=== PATIENT | male | born 1985 | race Caucasian/White ===

== ENCOUNTER 2017-02-04 14:45 | Observation (INO) ==
[2017-02-04 15:49] LABS: Basophils # 0.1 K/mcL (0.0-0.2); Basophils % 1.2 %; Eosinophils # 0.2 K/mcL (0.0-0.6); Eosinophils % 2.6 %; Hematocrit 46.4 % (37.5-50.1); Hemoglobin 15.6 g/dL (12.9-16.9); Immature Granulocytes % 0.4 % (0-4); Immature Platelets 1.1 % (1.1-6.1); Lymphocytes # 2.5 K/mcL (0.6-4.6); Lymphocytes % 29.7 %; Mean Corpuscular HGB Conc 33.6 g/dL (31.6-35.5); Mean Corpuscular Hemoglobin 28.5 pg (28.0-33.3); Mean Corpuscular Volume 84.8 fL (83.0-100.0); Monocytes # 0.7 K/mcL (0.0-1.3); Monocytes % 8.8 %; Neutrophils # 4.8 K/mcL (1.6-8.9); Platelet Count 437 K/mcL (140-400); Red Blood Count 5.47 M/mcL (4.19-5.50); Red Cell Distribution Width 13.2 % (11.5-14.5); Segmented Neutrophils % 57.3 %
[2017-02-04 16:04] LABS: Alanine Aminotransferase 290 Units/L (0-55); Albumin 3.9 g/dL (3.5-5.0); Albumin/Globulin Ratio 0.9 (1.1-2.2); Alkaline Phosphatase 149 Units/L (38-126); Aspartate Amino Transferase 150 Units/L (5-34); BUN/Creatinine Ratio 9 (6-26); Bilirubin,Total 0.7 mg/dL (0.2-1.2); Blood Urea Nitrogen 9 mg/dL (8-26); Carbon Dioxide 31 mEq/L (19-29); Chloride 105 mEq/L (98-109); Globulin 4.3 g/dL (2.4-3.5); Glucose 117 mg/dL (70-99); Osmolality,Calculated 292 (280-300); Potassium 3.7 mEq/L (3.5-4.5); Sodium 141 mEq/L (136-145); Total Protein 8.2 g/dL (6.0-8.3); eGFR For African Americans > 60 (> 60); eGFR For Non-African Americans > 60 (> 60)
[2017-02-04] MEDS ORDERED: *HR* LORazepam 2 MG/ML VIAL IVP ONE (17:34)
[2017-02-04] MEDS ORDERED: Haloperidol Lactate 5 MG/ML VIAL IVP ONE (17:37)
--- NOTE | 2017-02-04 17:38 | Emergency Department Note ---
Disposition Clinical Impression: Methamphetamine abuse, Picking own skin, Transaminitis Hepatitis C Qualifiers: Viral hepatitis chronicity: unspecified Hepatic coma status: without hepatic coma Qualified Code(s): B19.20 - Unspecified viral hepatitis C without hepatic coma Disposition: Still a Patient Condition: Fair Referrals: NONE,PCP [Primary Care Provider] - Forms: Work/School Release, ED Satisfaction Letter Time of Disposition: 22:28 General Adult HPI - General Chief complaint: ED General Medical Stated complaint: "spots all over due to a blood infection" Time Seen by Provider: 02/04/17 16:50 Source: patient, family Mode of arrival: ambulatory Limitations: no limitations Nursing Notes Reviewed: Yes Vital Signs Reviewed: Yes - History of Present Illness HPI Narrative: Patient is a 31-year-old male presents to the emergency department because he feels like there are worms under his skin and in his blood. Patient states this is been ongoing for the past 1-2 months. It has been worse over the last week to week and a half. Patient states that the sensation of this is relieved by using methamphetamine. It is worse when he gets emotional. Patient states that he has pulled worms out of his neck and out of his bloodstream with a needle. He states that he has had fever, chills, chest pain, abdominal pain. 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 Pain Scale: 6 - Related Data Allergies Allergy/AdvReac Type Severity Reaction Status Date / Time tramadol [From Ultram] Allergy Rash Verified 02/04/17 15:05 All systems ED: reviewed and negative except as stated. Constitutional: Reports: fever, chills Cardiovascular: Reports: chest pain Respiratory: Reports: dyspnea Gastrointestinal: Reports: abdominal pain Past Medical History - Past Medical History Medical history: Reports: asthma, hepatitis, other Psychiatric history: Reports: anxiety, depression - Social History Smoking Status: Current every day smoker Smokeless Tobacco Status: No Alcohol use: Reports: occasionally Drug use: Reports: marijuana, methamphetamine Physical Exam - General Limitations: no limitations General appearance: alert, anxious - Head Head exam: atraumatic, normocephalic - Neck Neck exam: Present: full ROM, trachea midline, other (Patient has lesions that he has picked on his neck.) - Respiratory Respiratory exam: Present: normal lung sounds bilaterally. Absent: respiratory distress, wheezes - Cardiovascular Cardiovascular exam: Present: regular rate, normal rhythm, normal heart sounds, +S1 - Abdominal Exam Abdominal exam: Present: soft, tenderness, normal bowel sounds, other Abdominal tenderness: Present: diffuse, mild - Neurological Exam Neurological exam: Present: alert, oriented X3 - Psychiatric Psychiatric exam: Present: agitated, anxious - Skin Skin exam: Present: warm, other (Multiple skin lesions throughout his body. Various stages of healing.) Course Vital Signs Temperature 98.1 F 02/04/17 15:05 Pulse Rate 128 02/04/17 15:05 Respiratory Rate 20 02/04/17 15:05 Blood Pressure 148/109 02/04/17 15:05 O2 Sat by Pulse Oximetry 98 02/04/17 15:05 Temperature 98.1 F 02/04/17 15:05 Pulse Rate 128 02/04/17 15:05 Respiratory Rate 20 02/04/17 15:05 Blood Pressure 148/109 02/04/17 15:05 O2 Sat by Pulse Oximetry 98 02/04/17 15:05 Oxygen Delivery Oxygen Delivery Room Air Medical Decision Making - MDM Narrative Medical decision making narrative: Laboratory tests were ordered as well as an EKG and chest x-ray. Due to the patient having a history of endocarditis as well as intravenous drug use recently we will work him up for endocarditis. Patient has been placed on a medical hold and will be evaluated by 1A due to concern for self-harm due to his recent picking and lesions present. The patient's labs came back showing transaminitis we ordered an acute hepatitis panel. This showed that the patient has hepatitis C. we are still waiting on the 1A consult to the patient will be signed out to Dr. Hauser and is attending Dr. Mcdonough - Lab Data Lab results reviewed: Yes I reviewed the patient's lab results. Result diagrams: 02/04/17 15:36 02/04/17 15:36 Lab Results 02/04/17 02/04/17 02/04/17 Range/Units 15:36 15:36 17:46 WBC 8.4 (4.3-11.1) K/mcL RBC 5.47 (4.19-5.50) M/mcL Hgb 15.6 (12.9-16.9) g/dL Hct 46.4 (37.5-50.1) % MCV 84.8 (83.0-100.0) fL MCH 28.5 (28.0-33.3) pg MCHC 33.6 (31.6-35.5) g/dL RDW 13.2 (11.5-14.5) % Plt Count 437 H (140-400) K/mcL MPV 8.0 L (9.4-12.4) fL Immature Gran % 0.4 (0-4) % Seg Neutrophils % 57.3 % Lymphocytes % 29.7 % Monocytes % 8.8 % Eosinophils % 2.6 % Basophils % 1.2 % Neutrophils # 4.8 (1.6-8.9) K/mcL Lymphocytes # 2.5 (0.6-4.6) K/mcL Monocytes # 0.7 (0.0-1.3) K/mcL Eosinophils # 0.2 (0.0-0.6) K/mcL Basophils # 0.1 (0.0-0.2) K/mcL Immature Plt Fraction 1.1 (1.1-6.1) % ESR 25 H (0-10) mm/hr Sodium 141 (136-145) mEq/L Potassium 3.7 (3.5-4.5) mEq/L Chloride 105 (98-109) mEq/L Carbon Dioxide 31 H (19-29) mEq/L BUN 9 (8-26) mg/dL Creatinine 0.99 (0.72-1.25) mg/dL Est GFR ( Amer) > 60 (> 60) Est GFR (Non-Af Amer) > 60 (> 60) BUN/Creatinine Ratio 9 (6-26) Glucose 117 H (70-99) mg/dL Calculated Osmolality 292 (280-300) Calcium 10.0 (8.6-10.8) mg/dL Total Bilirubin 0.7 (0.2-1.2) mg/dL AST 150 H (5-34) Units/L ALT 290 H (0-55) Units/L Alkaline Phosphatase 149 H (38-126) Units/L Troponin I (0-0.03) ng/mL C-Reactive Protein (Less than 5) mg/L Serum Total Protein 8.2 (6.0-8.3) g/dL Albumin 3.9 (3.5-5.0) g/dL Globulin 4.3 H (2.4-3.5) g/dL Albumin/Globulin Ratio 0.9 L (1.1-2.2) Urine Color (Yellow) Urine Clarity (Clear) Urine pH (5.0-8.0) pH Units Ur Specific [place] (1.010-1.025) Urine Protein (Neg-Trace) mg/dL Urine Glucose (UA) (Normal) mg/dL Urine Ketones (Negative) mg/dL Urine Blood (Negative) Urine Nitrite (Negative) Urine Bilirubin (Negative) Urine Urobilinogen (Normal) mg/dL Ur Leukocyte Esterase (Negative) Ur Culture Indicated? (NO) Urine Opiates Screen (Fpjeup=356) ng/mL Ur Barbiturates Screen (Usgzoa=330) ng/mL Ur Phencyclidine Scrn (Cutoff=25) ng/mL Ur Amphetamines Screen (Vpkviz=5455) ng/mL U Benzodiazepines Scrn (Wjybrq=459) ng/mL Urine Cocaine Screen (Cutoff= 300) ng/mL U Marijuana (THC) Screen (Cutoff = 50) ng/mL Hepatitis A IgM Ab (Nonreactive) Hep Bs Antigen (Nonreactive) Hep B Core IgM Ab (Nonreactive) Hepatitis C Ab Screen (Nonreactive) 02/04/17 02/04/17 02/04/17 Range/Units 17:46 17:46 17:46 WBC (4.3-11.1) K/mcL RBC (4.19-5.50) M/mcL Hgb (12.9-16.9) g/dL Hct (37.5-50.1) % MCV (83.0-100.0) fL MCH (28.0-33.3) pg MCHC (31.6-35.5) g/dL RDW (11.5-14.5) % Plt Count (140-400) K/mcL MPV (9.4-12.4) fL Immature Gran % (0-4) % Seg Neutrophils % % Lymphocytes % % Monocytes % % Eosinophils % % Basophils % % Neutrophils # (1.6-8.9) K/mcL Lymphocytes # (0.6-4.6) K/mcL Monocytes # (0.0-1.3) K/mcL Eosinophils # (0.0-0.6) K/mcL Basophils # (0.0-0.2) K/mcL Immature Plt Fraction (1.1-6.1) % ESR (0-10) mm/hr Sodium (136-145) mEq/L Potassium (3.5-4.5) mEq/L Chloride (98-109) mEq/L Carbon Dioxide (19-29) mEq/L BUN (8-26) mg/dL Creatinine (0.72-1.25) mg/dL Est GFR ( Amer) (> 60) Est GFR (Non-Af Amer) (> 60) BUN/Creatinine Ratio (6-26) Glucose (70-99) mg/dL Calculated Osmolality (280-300) Calcium (8.6-10.8) mg/dL Total Bilirubin (0.2-1.2) mg/dL AST (5-34) Units/L ALT (0-55) Units/L Alkaline Phosphatase (38-126) Units/L Troponin I 0.00 (0-0.03) ng/mL C-Reactive Protein 5 H (Less than 5) mg/L Serum Total Protein (6.0-8.3) g/dL Albumin (3.5-5.0) g/dL Globulin (2.4-3.5) g/dL Albumin/Globulin Ratio (1.1-2.2) Urine Color (Yellow) Urine Clarity (Clear) Urine pH (5.0-8.0) pH Units Ur Specific [place] (1.010-1.025) Urine Protein (Neg-Trace) mg/dL Urine Glucose (UA) (Normal) mg/dL Urine Ketones (Negative) mg/dL Urine Blood (Negative) Urine Nitrite (Negative) Urine Bilirubin (Negative) Urine Urobilinogen (Normal) mg/dL Ur Leukocyte Esterase (Negative) Ur Culture Indicated? (NO) Urine Opiates Screen (Lwbzfs=243) ng/mL Ur Barbiturates Screen (Zukdtb=871) ng/mL Ur Phencyclidine Scrn (Cutoff=25) ng/mL Ur Amphetamines Screen (Ajgbqh=6667) ng/mL U Benzodiazepines Scrn (Fxfhpm=328) ng/mL Urine Cocaine Screen (Cutoff= 300) ng/mL U Marijuana (THC) Screen (Cutoff = 50) ng/mL Hepatitis A IgM Ab Nonreactive (Nonreactive) Hep Bs Antigen Nonreactive (Nonreactive) Hep B Core IgM Ab Nonreactive (Nonreactive) Hepatitis C Ab Screen Reactive H (Nonreactive) 02/04/17 02/04/17 Range/Units 20:48 20:48 WBC (4.3-11.1) K/mcL RBC (4.19-5.50) M/mcL Hgb (12.9-16.9) g/dL Hct (37.5-50.1) % MCV (83.0-100.0) fL MCH (28.0-33.3) pg MCHC (31.6-35.5) g/dL RDW (11.5-14.5) % Plt Count (140-400) K/mcL MPV (9.4-12.4) fL Immature Gran % (0-4) % Seg Neutrophils % % Lymphocytes % % Monocytes % % Eosinophils % % Basophils % % Neutrophils # (1.6-8.9) K/mcL Lymphocytes # (0.6-4.6) K/mcL Monocytes # (0.0-1.3) K/mcL Eosinophils # (0.0-0.6) K/mcL Basophils # (0.0-0.2) K/mcL Immature Plt Fraction (1.1-6.1) % ESR (0-10) mm/hr Sodium (136-145) mEq/L Potassium (3.5-4.5) mEq/L Chloride (98-109) mEq/L Carbon Dioxide (19-29) mEq/L BUN (8-26) mg/dL Creatinine (0.72-1.25) mg/dL Est GFR ( Amer) (> 60) Est GFR (Non-Af Amer) (> 60) BUN/Creatinine Ratio (6-26) Glucose (70-99) mg/dL Calculated Osmolality (280-300) Calcium (8.6-10.8) mg/dL Total Bilirubin (0.2-1.2) mg/dL AST (5-34) Units/L ALT (0-55) Units/L Alkaline Phosphatase (38-126) Units/L Troponin I (0-0.03) ng/mL C-Reactive Protein (Less than 5) mg/L Serum Total Protein (6.0-8.3) g/dL Albumin (3.5-5.0) g/dL Globulin (2.4-3.5) g/dL Albumin/Globulin Ratio (1.1-2.2) Urine Color Yellow (Yellow) Urine Clarity Clear (Clear) Urine pH 6.0 (5.0-8.0) pH Units Ur Specific [place] 1.017 (1.010-1.025) Urine Protein Negative (Neg-Trace) mg/dL Urine Glucose (UA) Normal (Normal) mg/dL Urine Ketones Negative (Negative) mg/dL Urine Blood Negative (Negative) Urine Nitrite Negative (Negative) Urine Bilirubin Negative (Negative) Urine Urobilinogen Normal (Normal) mg/dL Ur Leukocyte Esterase Negative (Negative) Ur Culture Indicated? NO (NO) Urine Opiates Screen Negative (Jlifcj=738) ng/mL Ur Barbiturates Screen Negative (Smbaul=877) ng/mL Ur Phencyclidine Scrn Negative (Cutoff=25) ng/mL Ur Amphetamines Screen Positive H (Zonxmf=4345) ng/mL U Benzodiazepines Scrn Negative (Srgwyv=823) ng/mL Urine Cocaine Screen Negative (Cutoff= 300) ng/mL U Marijuana (THC) Screen Positive H (Cutoff = 50) ng/mL Hepatitis A IgM Ab (Nonreactive) Hep Bs Antigen (Nonreactive) Hep B Core IgM Ab (Nonreactive) Hepatitis C Ab Screen (Nonreactive) - Radiology Data Radiology results reviewed: Yes I reviewed the patient's radiology results. Chest X-Ray 02/04/17 17:31 IMPRESSION: No acute process. D/ / Mane Merchant MD / Mane Merchant MD Interpreting Provider: Mane Merchant MD - EKG Data EKG #1 EKG attestation: Yes I reviewed and interpreted this EKG. EKG results narrative: EKG shows sinus tachycardia at a rate of 112 bpm, IN interval 112, QRS duration 97, QTC 392, with a normal axis and no acute ischemic changes noted on this EKG S.B.A.R. - S.B.A.R. Situation: Demographics, MOA Background: Presenting Complaint, Relevant PMH, Meds, & Allergies Assessment: Vital Signs, Course and respsone to treatment, Exam Concerns, Patient/Family Expectation, Pertinant Lab Results, Outstanding Labs Recommendation: Barrier(s) to disposition, Recommendation based on pending studies, treatments, or consults S.B.A.RAmando Report Given to: Dr. Hauser and attending Dr. Ceasar IvanAEvelin Repor Time: 22:28
[2017-02-04] MEDS ORDERED: *HR* LORazepam 2 MG/ML VIAL IM ONE (18:05)
[2017-02-04] MEDS ORDERED: Haloperidol Lactate 5 MG/ML VIAL IM ONE (18:05)
[2017-02-04] MEDS ORDERED: Sulfamethoxazole/Trimeth DS 1 EACH TABLET PO ONE (18:58)
[2017-02-04 20:16] LABS: Hepatitis A Antibody IgM Nonreactive (Nonreactive); Hepatitis B Core IgM Nonreactive (Nonreactive); Hepatitis B Surface Antigen Nonreactive (Nonreactive)
[2017-02-04 20:18] LABS: Hepatitis C Virus Antibody Reactive (Nonreactive)
[2017-02-04 20:56] LABS: Bilirubin,Urine Negative (Negative); Blood,Urine Negative (Negative); Clarity,Urine Clear (Clear); Color,Urine Yellow (Yellow); Glucose,Urine (UA) Normal (Normal); Ketones,Urine Negative (Negative); Leukocyte Esterase,Urine Negative (Negative); Nitrite,Urine Negative (Negative); Protein,Urine Negative (Neg-Trace); Specific Gravity,Urine 1.017 (1.010-1.025); Urobilinogen,Urine Normal (Normal)
[2017-02-04 21:12] LABS: Amphetamine Screen,Urine Positive ng/mL (Cutoff=1000); Barbiturate Screen,Urine Negative ng/mL (Cutoff=200); Benzodiazepines Screen,Urine Negative ng/mL (Cutoff=200); Cannabinoid Screen,Urine Positive ng/mL (Cutoff = 50); Cocaine Screen,Urine Negative ng/mL (Cutoff= 300); Opiate Screen,Urine Negative ng/mL (Cutoff=300); Phencyclidine Screen,Urine Negative ng/mL (Cutoff=25)
--- NOTE | 2017-02-04 21:19 | Emergency Department Note ---
START Narrative - START START: I examined this patient and my medical decision-making was reviewed with the Resident Physician. I agree with the documented findings, disposition and treatment plan as described except to the extent set forth below. In summary 31 -year-old male with polysubstance abuse and associated acute psychosis resulting in severely excoriated skin and self mutilating behavior. He was actually found picking himself with a pair of scissors. I do suspect methamphetamine intoxication given excoriated skin behavior. He is acutely agitated. He is found to be positive for hepatitis C and found to have transaminitis. I discussed he would after subsequent treatment with gastroenterology and follow-up. At this point I would prefer the patient to stay on a medical hold as I do feel he is a danger to himself at this point due to poor decisions as well as intoxication with methamphetamine as well as Opana. We will continue medical hold pending final disposition by behavioral health team. I would prescribe Bactrim at discharge for excoriated skin lesions if the patient has discharge. Greater than 35 minutes of critical care time was spent resuscitating this acutely agitated male requiring chemical restraint as well as evaluation of acute hepatic failure from underlying hepatitis C. Critical care time was excluding billable procedures.
--- NOTE | 2017-02-05 00:34 | Emergency Department Note ---
Disposition Clinical Impression: Methamphetamine abuse, Picking own skin, Transaminitis Hepatitis C Qualifiers: Viral hepatitis chronicity: unspecified Hepatic coma status: without hepatic coma Qualified Code(s): B19.20 - Unspecified viral hepatitis C without hepatic coma Disposition: Admitted As Inpatient Condition: Fair Referrals: NONE,PCP [Primary Care Provider] - Forms: ED Satisfaction Letter, Work/School Release Time of Disposition: 00:34 General Adult HPI - General Chief complaint: ED General Medical Stated complaint: "spots all over due to a blood infection" Time Seen by Provider: 02/04/17 16:50 Source: patient, family Mode of arrival: ambulatory Limitations: no limitations - History of Present Illness Pain Scale: 6 - Related Data Allergies Allergy/AdvReac Type Severity Reaction Status Date / Time tramadol [From [facility]] Allergy Rash Verified 02/04/17 15:05 Constitutional: Reports: fever, chills Cardiovascular: Reports: chest pain Respiratory: Reports: dyspnea Gastrointestinal: Reports: abdominal pain Past Medical History - Past Medical History Medical history: Reports: asthma, hepatitis, other Psychiatric history: Reports: anxiety, depression - Social History Smoking Status: Current every day smoker Smokeless Tobacco Status: No Alcohol use: Reports: occasionally Drug use: Reports: marijuana, methamphetamine Physical Exam - General Limitations: no limitations General appearance: alert, anxious Course - Reevaluation(s) Reevaluation #1: Patient signed out pending evaluation by psych. Except a by one a. Time: 00:34 Vital Signs Temperature 98.1 F 02/04/17 15:05 Pulse Rate 128 02/04/17 15:05 Respiratory Rate 20 02/04/17 15:05 Blood Pressure 148/109 02/04/17 15:05 O2 Sat by Pulse Oximetry 98 02/04/17 15:05 Temperature 98.1 F 02/04/17 15:05 Pulse Rate 128 02/04/17 15:05 Respiratory Rate 20 02/04/17 15:05 Blood Pressure 148/109 02/04/17 15:05 O2 Sat by Pulse Oximetry 98 02/04/17 15:05 Oxygen Delivery Oxygen Delivery Room Air Medical Decision Making - Lab Data Result diagrams: 02/04/17 15:36 02/04/17 15:36 Lab Results 02/04/17 02/04/17 02/04/17 Range/Units 15:36 15:36 17:46 WBC 8.4 (4.3-11.1) K/mcL RBC 5.47 (4.19-5.50) M/mcL Hgb 15.6 (12.9-16.9) g/dL Hct 46.4 (37.5-50.1) % MCV 84.8 (83.0-100.0) fL MCH 28.5 (28.0-33.3) pg MCHC 33.6 (31.6-35.5) g/dL RDW 13.2 (11.5-14.5) % Plt Count 437 H (140-400) K/mcL MPV 8.0 L (9.4-12.4) fL Immature Gran % 0.4 (0-4) % Seg Neutrophils % 57.3 % Lymphocytes % 29.7 % Monocytes % 8.8 % Eosinophils % 2.6 % Basophils % 1.2 % Neutrophils # 4.8 (1.6-8.9) K/mcL Lymphocytes # 2.5 (0.6-4.6) K/mcL Monocytes # 0.7 (0.0-1.3) K/mcL Eosinophils # 0.2 (0.0-0.6) K/mcL Basophils # 0.1 (0.0-0.2) K/mcL Immature Plt Fraction 1.1 (1.1-6.1) % ESR 25 H (0-10) mm/hr Sodium 141 (136-145) mEq/L Potassium 3.7 (3.5-4.5) mEq/L Chloride 105 (98-109) mEq/L Carbon Dioxide 31 H (19-29) mEq/L BUN 9 (8-26) mg/dL Creatinine 0.99 (0.72-1.25) mg/dL Est GFR ( Amer) > 60 (> 60) Est GFR (Non-Af Amer) > 60 (> 60) BUN/Creatinine Ratio 9 (6-26) Glucose 117 H (70-99) mg/dL Calculated Osmolality 292 (280-300) Calcium 10.0 (8.6-10.8) mg/dL Total Bilirubin 0.7 (0.2-1.2) mg/dL AST 150 H (5-34) Units/L ALT 290 H (0-55) Units/L Alkaline Phosphatase 149 H (38-126) Units/L Troponin I (0-0.03) ng/mL C-Reactive Protein (Less than 5) mg/L Serum Total Protein 8.2 (6.0-8.3) g/dL Albumin 3.9 (3.5-5.0) g/dL Globulin 4.3 H (2.4-3.5) g/dL Albumin/Globulin Ratio 0.9 L (1.1-2.2) Urine Color (Yellow) Urine Clarity (Clear) Urine pH (5.0-8.0) pH Units Ur Specific [place] (1.010-1.025) Urine Protein (Neg-Trace) mg/dL Urine Glucose (UA) (Normal) mg/dL Urine Ketones (Negative) mg/dL Urine Blood (Negative) Urine Nitrite (Negative) Urine Bilirubin (Negative) Urine Urobilinogen (Normal) mg/dL Ur Leukocyte Esterase (Negative) Ur Culture Indicated? (NO) Urine Opiates Screen (Izgxdz=644) ng/mL Ur Barbiturates Screen (Nbeojy=254) ng/mL Ur Phencyclidine Scrn (Cutoff=25) ng/mL Ur Amphetamines Screen (Sjfrfi=9079) ng/mL U Benzodiazepines Scrn (Tjerkn=524) ng/mL Urine Cocaine Screen (Cutoff= 300) ng/mL U Marijuana (THC) Screen (Cutoff = 50) ng/mL Hepatitis A IgM Ab (Nonreactive) Hep Bs Antigen (Nonreactive) Hep B Core IgM Ab (Nonreactive) Hepatitis C Ab Screen (Nonreactive) 02/04/17 02/04/17 02/04/17 Range/Units 17:46 17:46 17:46 WBC (4.3-11.1) K/mcL RBC (4.19-5.50) M/mcL Hgb (12.9-16.9) g/dL Hct (37.5-50.1) % MCV (83.0-100.0) fL MCH (28.0-33.3) pg MCHC (31.6-35.5) g/dL RDW (11.5-14.5) % Plt Count (140-400) K/mcL MPV (9.4-12.4) fL Immature Gran % (0-4) % Seg Neutrophils % % Lymphocytes % % Monocytes % % Eosinophils % % Basophils % % Neutrophils # (1.6-8.9) K/mcL Lymphocytes # (0.6-4.6) K/mcL Monocytes # (0.0-1.3) K/mcL Eosinophils # (0.0-0.6) K/mcL Basophils # (0.0-0.2) K/mcL Immature Plt Fraction (1.1-6.1) % ESR (0-10) mm/hr Sodium (136-145) mEq/L Potassium (3.5-4.5) mEq/L Chloride (98-109) mEq/L Carbon Dioxide (19-29) mEq/L BUN (8-26) mg/dL Creatinine (0.72-1.25) mg/dL Est GFR ( Amer) (> 60) Est GFR (Non-Af Amer) (> 60) BUN/Creatinine Ratio (6-26) Glucose (70-99) mg/dL Calculated Osmolality (280-300) Calcium (8.6-10.8) mg/dL Total Bilirubin (0.2-1.2) mg/dL AST (5-34) Units/L ALT (0-55) Units/L Alkaline Phosphatase (38-126) Units/L Troponin I 0.00 (0-0.03) ng/mL C-Reactive Protein 5 H (Less than 5) mg/L Serum Total Protein (6.0-8.3) g/dL Albumin (3.5-5.0) g/dL Globulin (2.4-3.5) g/dL Albumin/Globulin Ratio (1.1-2.2) Urine Color (Yellow) Urine Clarity (Clear) Urine pH (5.0-8.0) pH Units Ur Specific [place] (1.010-1.025) Urine Protein (Neg-Trace) mg/dL Urine Glucose (UA) (Normal) mg/dL Urine Ketones (Negative) mg/dL Urine Blood (Negative) Urine Nitrite (Negative) Urine Bilirubin (Negative) Urine Urobilinogen (Normal) mg/dL Ur Leukocyte Esterase (Negative) Ur Culture Indicated? (NO) Urine Opiates Screen (Jmrxap=324) ng/mL Ur Barbiturates Screen (Wkxmdd=257) ng/mL Ur Phencyclidine Scrn (Cutoff=25) ng/mL Ur Amphetamines Screen (Rcsnem=1475) ng/mL U Benzodiazepines Scrn (Enwdhf=151) ng/mL Urine Cocaine Screen (Cutoff= 300) ng/mL U Marijuana (THC) Screen (Cutoff = 50) ng/mL Hepatitis A IgM Ab Nonreactive (Nonreactive) Hep Bs Antigen Nonreactive (Nonreactive) Hep B Core IgM Ab Nonreactive (Nonreactive) Hepatitis C Ab Screen Reactive H (Nonreactive) 02/04/17 02/04/17 Range/Units 20:48 20:48 WBC (4.3-11.1) K/mcL RBC (4.19-5.50) M/mcL Hgb (12.9-16.9) g/dL Hct (37.5-50.1) % MCV (83.0-100.0) fL MCH (28.0-33.3) pg MCHC (31.6-35.5) g/dL RDW (11.5-14.5) % Plt Count (140-400) K/mcL MPV (9.4-12.4) fL Immature Gran % (0-4) % Seg Neutrophils % % Lymphocytes % % Monocytes % % Eosinophils % % Basophils % % Neutrophils # (1.6-8.9) K/mcL Lymphocytes # (0.6-4.6) K/mcL Monocytes # (0.0-1.3) K/mcL Eosinophils # (0.0-0.6) K/mcL Basophils # (0.0-0.2) K/mcL Immature Plt Fraction (1.1-6.1) % ESR (0-10) mm/hr Sodium (136-145) mEq/L Potassium (3.5-4.5) mEq/L Chloride (98-109) mEq/L Carbon Dioxide (19-29) mEq/L BUN (8-26) mg/dL Creatinine (0.72-1.25) mg/dL Est GFR ( Amer) (> 60) Est GFR (Non-Af Amer) (> 60) BUN/Creatinine Ratio (6-26) Glucose (70-99) mg/dL Calculated Osmolality (280-300) Calcium (8.6-10.8) mg/dL Total Bilirubin (0.2-1.2) mg/dL AST (5-34) Units/L ALT (0-55) Units/L Alkaline Phosphatase (38-126) Units/L Troponin I (0-0.03) ng/mL C-Reactive Protein (Less than 5) mg/L Serum Total Protein (6.0-8.3) g/dL Albumin (3.5-5.0) g/dL Globulin (2.4-3.5) g/dL Albumin/Globulin Ratio (1.1-2.2) Urine Color Yellow (Yellow) Urine Clarity Clear (Clear) Urine pH 6.0 (5.0-8.0) pH Units Ur Specific [place] 1.017 (1.010-1.025) Urine Protein Negative (Neg-Trace) mg/dL Urine Glucose (UA) Normal (Normal) mg/dL Urine Ketones Negative (Negative) mg/dL Urine Blood Negative (Negative) Urine Nitrite Negative (Negative) Urine Bilirubin Negative (Negative) Urine Urobilinogen Normal (Normal) mg/dL Ur Leukocyte Esterase Negative (Negative) Ur Culture Indicated? NO (NO) Urine Opiates Screen Negative (Hcpqlf=559) ng/mL Ur Barbiturates Screen Negative (Hhzklh=425) ng/mL Ur Phencyclidine Scrn Negative (Cutoff=25) ng/mL Ur Amphetamines Screen Positive H (Lctbil=0579) ng/mL U Benzodiazepines Scrn Negative (Kzfibh=433) ng/mL Urine Cocaine Screen Negative (Cutoff= 300) ng/mL U Marijuana (THC) Screen Positive H (Cutoff = 50) ng/mL Hepatitis A IgM Ab (Nonreactive) Hep Bs Antigen (Nonreactive) Hep B Core IgM Ab (Nonreactive) Hepatitis C Ab Screen (Nonreactive)
[2017-02-05] MEDS ORDERED: Acetaminophen 325 MG TABLET PO PRN (05:57)
[2017-02-05] MEDS ORDERED: Naloxone 0.4 MG/ML INJ IVP PRN (05:57)
[2017-02-05] MEDS ORDERED: OLANZapine 10 MG VIAL IM PRN (05:59)
--- NOTE | 2017-02-05 06:05 | Internal Med History&Physical ---
Date of Encounter: 02/05/17 Time of Encounter: 06:02 Assessment and Plan (1) Helminth infection, unspecified Current visit: Yes Status: Acute psych eval in the ED requested for inpatient work up for worm infection in his stomach as reported by patient. Will consult ID to assist with evaluation and testing. There is doubts of whether this is psychosis related rather than true infection. Eosinophils wnl (2) Psychosis Current visit: Yes Status: Acute 2/2 substance abuse, anti psychotic prn, consult psych Qualifiers: Qualified Code(s): F29 - Unspecified psychosis not due to a substance or known physiological condition (3) Hepatitis C Current visit: Yes Status: Acute from IVDU Qualifiers: Viral hepatitis chronicity: unspecified Hepatic coma status: without hepatic coma Qualified Code(s): B19.20 - Unspecified viral hepatitis C without hepatic coma (4) Methamphetamine abuse Current visit: Yes Status: Acute active, pending psych eval and inpatient psych per ED eval. Pending medical clearance of infectious disease - worms ? Social work consult (5) Picking own skin Current visit: Yes Status: Acute 2/2 to drug use (6) Transaminitis Current visit: Yes Status: Acute likely 2/2 HCV and drug use, trend Internal Medicine - H&P: HPI Chief complaint: patient felt he has worm infection History of present illness: Mr. Swanson is a 31 year old male with active IV opana and methamphetamine uses who presents for medical clearance of infectious disease prior to planned inpatient psych placement. He was in the ED and evaluated by psych with plan for inpatient care. However, he reported to the psych team that has "worm" infection and had worms in his stomach when he vomited. He denies any diarrhea but report progressive soft stools. He is in active psychosis from drugs and has a medical hold Past Med Surg Social Fam HX - Past Medical History Medical history: asthma, hepatitis, other Psychiatric history: anxiety, depression - Social History Smoking Status: Current every day smoker Smokeless Tobacco Status: No Alcohol use: occasionally Drug use: marijuana, methamphetamine Internal Medicine - H&P: Meds Allergies tramadol [From Ultram] Allergy (Verified 02/04/17 15:05) Rash All Systems PM: A 10-system review of systems was performed and is negative for pertinent findings except as documented above in the HPI. Review of systems: ROS 14 point review of systems reviewed as best as possible given presentation. Pertinent positive or negative as per HPI or otherwise reviewed as negative - Constitutional Vitals: Temp Pulse Resp BP Pulse Ox 98.1 F 83 18 114/75 100 02/04/17 15:05 02/05/17 04:44 02/05/17 04:44 02/05/17 04:44 02/05/17 04:44 Exam: General - confused Psych - Mild agitation Eyes - ROCHELLE. Eye lids intact. No scleral icterus ENT - Oral mucosa pink, dentition intact. External ear clear/dry/intact. No thyromegaly Heart - Sinus. RRR. S1 and S2 present. No added HS/murmurs appreciated. No elevated JVD appreciated. No calf swellings/erythema Lung - Adequate air entry b/l, No crackes/wheezes appreciated GI - Soft, non-tender. No hepatosplenomegaly/ascities. BS+ - No CVA/suprapubic tenderness or palpable bladder distension Skin - skins lesions all over body with varying stages of healing Internal Med - H&P Results - Labs CBC & Chem 7: 02/04/17 15:36 02/04/17 15:36
[2017-02-05] MEDS ORDERED: Sulfamethoxazole/Trimeth DS 1 EACH TABLET PO ONE (06:15)
[2017-02-05] MEDS: 0.9 % Sodium Chloride 1,000 ML IVC SCH ×2 (06:49→21:52)
[2017-02-05] MEDS: *HR* Enoxaparin 40 MG/0.4 ML SYRINGE SQ SCH (06:50)
--- NOTE | 2017-02-05 09:19 | Event Note ---
Date of Encounter: 02/05/17 Time of Encounter: 08:20 Patient is a 31y/o male with history of active IV drug abuse, hepatitis C who presented to the ER with active psychosis. As per records, patient was in active state of delirium and was digging into his arm with a knife stating that he has worms inside him. There is no clinical evidence of infectious etiology present at this time. Patient was not accepted into psych due to the history provided by the patient. Pt needs medical clearance as per psych. At this time, patient is sleeping comfortably in bed with a sitter at bedside. His toxicology screen is positive for amphetamines and marijuana. He is hemodynamically stable and initial lab work was negative for any infectious etiology. Elevated LFTs are consistent with history of hepatitis C. Will repeat Lab work and continue bedside sitter. Zyprexa prn agitation. If patient remains stable with no further signs of infectious etiology, he should be transferred to psych in patient. Psychiatry evaluation requested.
[2017-02-05 09:38] LABS: Hematocrit 42.9 % (37.5-50.1); Hemoglobin 14.4 g/dL (12.9-16.9); Mean Corpuscular HGB Conc 33.6 g/dL (31.6-35.5); Mean Corpuscular Hemoglobin 28.5 pg (28.0-33.3); Mean Platelet Volume 8.3 fL (9.4-12.4); Platelet Count 320 K/mcL (140-400); Red Blood Count 5.05 M/mcL (4.19-5.50); Red Cell Distribution Width 13.3 % (11.5-14.5)
[2017-02-05 09:53] LABS: Alanine Aminotransferase 293 Units/L (0-55); Albumin/Globulin Ratio 0.9 (1.1-2.2); Alkaline Phosphatase 127 Units/L (38-126); Aspartate Amino Transferase 202 Units/L (5-34); BUN/Creatinine Ratio 9 (6-26); Bilirubin,Total 0.9 mg/dL (0.2-1.2); Blood Urea Nitrogen 7 mg/dL (8-26); Carbon Dioxide 30 mEq/L (19-29); Chloride 106 mEq/L (98-109); Globulin 3.4 g/dL (2.4-3.5); Glucose 86 mg/dL (70-99); Magnesium 2.1 mg/dL (1.6-2.6); Osmolality,Calculated 289 (280-300); Phosphorous 3.5 mg/dL (2.3-4.7); Potassium 4.1 mEq/L (3.5-4.5); Sodium 141 mEq/L (136-145); eGFR For African Americans > 60 (> 60); eGFR For Non-African Americans > 60 (> 60)
[2017-02-05 09:54] LABS: Albumin 3.1 g/dL (3.5-5.0); Total Protein 6.5 g/dL (6.0-8.3)
[2017-02-05 10:13] LABS: Eosinophils # 0.3 K/mcL (0.0-0.6); Lymphocytes # 2.3 K/mcL (0.6-4.6); Monocytes # 0.8 K/mcL (0.0-1.3); Neutrophils # 4.2 K/mcL (1.6-8.9); Platelet Estimate Normal (Normal)
--- NOTE | 2017-02-05 14:18 | Consult Note ---
Date of Encounter: 02/05/17 Time of Encounter: 13:55 Assessment & Recommendation (1) Acute psychosis Current visit: Yes Status: Acute (2) Methamphetamine abuse Current visit: Yes Status: Acute (3) Cannabis abuse Current visit: Yes Status: Acute History of Present Illness Requesting Physician: Shantal Louise Reason for consult: acute psychosis History of present illness: Mr. Swanson is a 31 year old male who was consulted today for substance use and acute psychosis. Patient chart was reviewed. Patient was seen in his room along with the sitter. he started talking about his drug use , when asked about his method of use and his excoriated skin he got very agitated , irritable and asked me to leave and said I am done talking. as per notes patient was bought to ER by his family and has bee using poly substance , toxicology positive for marijuana and amphetamines. He was found picking himself with pair of scissors. at present he is still acutely agitated and psychotic. He is not giving me any history and was agitated and refused to talk. PLAN needs psychiatric inpatient secondary to psychosis and agitation as can be harmful to self/others. start zyprexa 10 mg po hs . also continue prn zyprexa 5 mg for agitation and psychosis. CC: Shantal Louise Past Med Surg Social Fam HX - Past Medical History Medical history: asthma, hepatitis, other - Past Psychiatric History Psychiatric history: Reports: depression Family psychiatric history: Unknown Family History of Suicide: Unknown - Social History Smoking Status: Current every day smoker Smokeless Tobacco Status: No Alcohol use: occasionally Drug use: marijuana, methamphetamine Medications & Allergies Allergies tramadol [From Ultram] Allergy (Verified 02/04/17 15:05) Rash Review of Systems Psychiatric: Reports: irritability Mental Status Exam Level of alertness: Alert Patient appearance: Unkempt Behavior: agitated, aggressive, hostile, uncooperative, impulsive Psychomotor activity: Agitated Eye contact: No Eye Contact Mood description: Angry, Irritable Affect description: congruent with mood Speech pattern: Normal rate Speech volume: Excessive Variation Thought content: Yes Paranoid delusion Attention span: Unable to Sustain Attention Patient reliability: Not Reliable Historian Insight: None Results - Vital Signs Vital signs: Temp Pulse Resp BP Pulse Ox 97.6 F 91 18 93/52 99 02/05/17 08:49 02/05/17 08:49 07/29/17 08:49 02/05/17 08:49 02/05/17 08:49 - Labs Labs: Laboratory Last Values WBC 7.5 K/mcL (4.3-11.1) 02/05/17 09:19 RBC 5.05 M/mcL (4.19-5.50) 02/05/17 09:19 Hgb 14.4 g/dL (12.9-16.9) 02/05/17 09:19 Hct 42.9 % (37.5-50.1) 02/05/17 09:19 MCV 85.0 fL (83.0-100.0) 02/05/17 09:19 MCH 28.5 pg (28.0-33.3) 02/05/17 09:19 MCHC 33.6 g/dL (31.6-35.5) 02/05/17 09:19 RDW 13.3 % (11.5-14.5) 02/05/17 09:19 Plt Count 320 K/mcL (140-400) 02/05/17 09:19 MPV 8.3 fL (9.4-12.4) L 02/05/17 09:19 Immature Gran % 0.4 % (0-4) 02/04/17 15:36 Seg Neutrophils % 54.0 % 02/05/17 09:19 Band Neutrophils % 2.0 % (0-4) 02/05/17 09:19 Lymphocytes % 30.0 % 02/05/17 09:19 Monocytes % 10.0 % 02/05/17 09:19 Eosinophils % 4.0 % 02/05/17 09:19 Basophils % 1.2 % 02/04/17 15:36 Neutrophils # 4.2 K/mcL (1.6-8.9) 02/05/17 09:19 Lymphocytes # 2.3 K/mcL (0.6-4.6) 02/05/17 09:19 Monocytes # 0.8 K/mcL (0.0-1.3) 02/05/17 09:19 Eosinophils # 0.3 K/mcL (0.0-0.6) 02/05/17 09:19 Basophils # 0.1 K/mcL (0.0-0.2) 02/04/17 15:36 Platelet Estimate Normal (Normal) 02/05/17 09:19 Immature Plt Fraction 1.1 % (1.1-6.1) 02/04/17 15:36 ESR 25 mm/hr (0-10) H 02/04/17 17:46 Sodium 141 mEq/L (136-145) 02/05/17 09:19 Potassium 4.1 mEq/L (3.5-4.5) 02/05/17 09:19 Chloride 106 mEq/L (98-109) 02/05/17 09:19 Carbon Dioxide 30 mEq/L (19-29) H 02/05/17 09:19 BUN 7 mg/dL (8-26) L 02/05/17 09:19 Creatinine 0.77 mg/dL (0.72-1.25) 02/05/17 09:19 Est GFR ( Amer) > 60 (> 60) 02/05/17 09:19 Est GFR (Non-Af Amer) > 60 (> 60) 02/05/17 09:19 BUN/Creatinine Ratio 9 (6-26) 02/05/17 09:19 Glucose 86 mg/dL (70-99) 02/05/17 09:19 Calculated Osmolality 289 (280-300) 02/05/17 09:19 Calcium 9.0 mg/dL (8.6-10.8) 02/05/17 09:19 Phosphorus 3.5 mg/dL (2.3-4.7) 02/05/17 09:19 Magnesium 2.1 mg/dL (1.6-2.6) 02/05/17 09:19 Total Bilirubin 0.9 mg/dL (0.2-1.2) 02/05/17 09:19 AST 202 Units/L (5-34) H 02/05/17 09:19 ALT 293 Units/L (0-55) H 02/05/17 09:19 Alkaline Phosphatase 127 Units/L (38-126) H 02/05/17 09:19 Troponin I 0.00 ng/mL (0-0.03) 02/04/17 17:46 C-Reactive Protein 5 mg/L (Less than 5) H 02/04/17 17:46 Serum Total Protein 6.5 g/dL (6.0-8.3) D 02/05/17 09:19 Albumin 3.1 g/dL (3.5-5.0) L D 02/05/17 09:19 Globulin 3.4 g/dL (2.4-3.5) 02/05/17 09:19 Albumin/Globulin Ratio 0.9 (1.1-2.2) L 02/05/17 09:19 Urine Color Yellow (Yellow) 02/04/17 20:48 Urine Clarity Clear (Clear) 02/04/17 20:48 Urine pH 6.0 pH Units (5.0-8.0) 02/04/17 20:48 Ur Specific [place] 1.017 (1.010-1.025) 02/04/17 20:48 Urine Protein Negative mg/dL (Neg-Trace) 02/04/17 20:48 Urine Glucose (UA) Normal mg/dL (Normal) 02/04/17 20:48 Urine Ketones Negative mg/dL (Negative) 02/04/17 20:48 Urine Blood Negative (Negative) 02/04/17 20:48 Urine Nitrite Negative (Negative) 02/04/17 20:48 Urine Bilirubin Negative (Negative) 02/04/17 20:48 Urine Urobilinogen Normal mg/dL (Normal) 02/04/17 20:48 Ur Leukocyte Esterase Negative (Negative) 02/04/17 20:48 Ur Culture Indicated? NO (NO) 02/04/17 20:48 Urine Opiates Screen Negative ng/mL (Sbtbqe=221) 02/04/17 20:48 Ur Barbiturates Screen Negative ng/mL (Ernnvp=926) 02/04/17 20:48 Ur Phencyclidine Scrn Negative ng/mL (Cutoff=25) 02/04/17 20:48 Ur Amphetamines Screen Positive ng/mL (Sjhwcq=2873) H 02/04/17 20:48 U Benzodiazepines Scrn Negative ng/mL (Mntfgg=685) 02/04/17 20:48 Urine Cocaine Screen Negative ng/mL (Cutoff= 300) 02/04/17 20:48 U Marijuana (THC) Screen Positive ng/mL (Cutoff = 50) H 02/04/17 20:48 Hepatitis A IgM Ab Nonreactive (Nonreactive) 02/04/17 17:46 Hep Bs Antigen Nonreactive (Nonreactive) 02/04/17 17:46 Hep B Core IgM Ab Nonreactive (Nonreactive) 02/04/17 17:46 Hepatitis C Ab Screen Reactive (Nonreactive) H 02/04/17 17:46 Consult Discharge Plan - Plan Referrals: NONE,PCP [Primary Care Provider] -
[2017-02-05] MEDS ORDERED: Water for inj. (sterile) 10 ML IV ONE (16:49)
[2017-02-06] MEDS: OLANZapine 10 MG TAB.RAPDIS PO SCH ×2 (03:24→19:53)
[2017-02-06] MEDS: 0.9 % Sodium Chloride 1,000 ML IVC SCH (03:24)
[2017-02-06] MEDS ORDERED: OLANZapine 10 MG TAB.RAPDIS PO ONE (03:44)
[2017-02-06 04:33] LABS: Basophils # 0.1 K/mcL (0.0-0.2); Basophils % 1.5 %; Eosinophils # 0.3 K/mcL (0.0-0.6); Eosinophils % 4.7 %; Hematocrit 42.7 % (37.5-50.1); Hemoglobin 14.2 g/dL (12.9-16.9); Immature Granulocytes % 0.3 % (0-4); Lymphocytes # 2.8 K/mcL (0.6-4.6); Lymphocytes % 40.6 %; Mean Corpuscular HGB Conc 33.3 g/dL (31.6-35.5); Mean Corpuscular Hemoglobin 28.7 pg (28.0-33.3); Mean Corpuscular Volume 86.3 fL (83.0-100.0); Mean Platelet Volume 8.3 fL (9.4-12.4); Monocytes # 0.6 K/mcL (0.0-1.3); Monocytes % 9.1 %; Platelet Count 318 K/mcL (140-400); Red Blood Count 4.95 M/mcL (4.19-5.50); Red Cell Distribution Width 13.2 % (11.5-14.5); Segmented Neutrophils % 43.8 %
[2017-02-06 04:49] LABS: Magnesium 2.2 mg/dL (1.6-2.6); Phosphorous 3.1 mg/dL (2.3-4.7)
[2017-02-06 04:53] LABS: Alanine Aminotransferase 297 Units/L (0-55); Albumin 2.9 g/dL (3.5-5.0); Albumin/Globulin Ratio 0.9 (1.1-2.2); Alkaline Phosphatase 123 Units/L (38-126); Aspartate Amino Transferase 198 Units/L (5-34); BUN/Creatinine Ratio 10 (6-26); Bilirubin,Direct 0.4 mg/dL (0.0-0.5); Bilirubin,Indirect 0.3 mg/dL (0.0-1.2); Bilirubin,Total 0.7 mg/dL (0.2-1.2); Blood Urea Nitrogen 10 mg/dL (8-26); Calcium 8.6 mg/dL (8.6-10.8); Carbon Dioxide 29 mEq/L (19-29); Chloride 106 mEq/L (98-109); Globulin 3.4 g/dL (2.4-3.5); Glucose 117 mg/dL (70-99); Osmolality,Calculated 290 (280-300); Potassium 3.7 mEq/L (3.5-4.5); Sodium 140 mEq/L (136-145); Total Protein 6.3 g/dL (6.0-8.3); eGFR For African Americans > 60 (> 60); eGFR For Non-African Americans > 60 (> 60)
[2017-02-06] MEDS: *HR* Enoxaparin 40 MG/0.4 ML SYRINGE SQ SCH (05:30)
--- NOTE | 2017-02-06 11:26 | Internal Med Progress Note ---
Date of Encounter: 02/06/17 Time of Encounter: 10:55 - Assessment and plan (1) Acute psychosis Current Visit: Yes Status: Acute Assessment and plan: Pt is medically stable for transfer to psych inpatient psych evaluation appreciated transfer to psych pending bed availability zyprexa prn severe agitation continue bedside sitter monitoring (2) Polysubstance abuse Current Visit: Yes Status: Acute Assessment and plan: history of IVDA and polsysubtance abuse tox screen positive for amphetamines and marijuana (3) Hepatitis C Current Visit: Yes Status: Chronic Assessment and plan: LFTs consistent with chronic hep C pt will need outpatient GI follow up Qualifiers: Viral hepatitis chronicity: unspecified Hepatic coma status: without hepatic coma Qualified Code(s): B19.20 - Unspecified viral hepatitis C without hepatic coma - Subjective Interval history: Patient seen and examined at bedside. More calm today and resting in bed. Pt was noted to be severely agitated yesterday wanting to leave and required Zyprexa. He was seen by psychiatry and transfer to psych is pending bed availability. He is AAO x 3 however remains anxious and does not have any understanding of his hospitalization - Constitutional Vitals: Temp Pulse Resp BP Pulse Ox 98.6 F 86 17 108/75 98 02/06/17 08:34 02/06/17 08:34 02/06/17 08:34 02/06/17 08:34 02/06/17 08:34 General appearance: Present: A&O X 3, no acute distress - Head Head exam: Present: atraumatic, normocephalic - Eye Eye exam: Present: conjuntiva pink, sclera anicteric - Respiratory Respiratory exam: Present: CTAB. Absent: accessory muscle use, rales, rhonchi, wheezes - Cardiovascular Cardiovascular exam: Present: RRR, +S1, +S2. Absent: diastolic murmur, gallop, rubs, systolic murmur - GI/Abdominal GI/Abdominal exam: Present: normal bowel sounds, soft, no peritoneal signs. Absent: distended, tenderness - Extremities Exam Extremities exam: Present: warm, radial pulses palpable and symetrical. Absent : calf tenderness, cyanotic, pedal edema - Neurological Exam Neurological exam: Present: alert, oriented X3 - Psychiatric Psychiatric exam: Present: anxious - Skin Additional comments: diffuse scabs on skin on bilateral upper extremities, face, lower extremities Internal Medicine: Result - Labs CBC & Chem 7: 02/06/17 04:17 02/06/17 04:17 Labs: Short CBC 02/06/17 Range/Units 04:17 WBC 6.8 (4.3-11.1) K/mcL Hgb 14.2 (12.9-16.9) g/dL Hct 42.7 (37.5-50.1) % Plt Count 318 (140-400) K/mcL Neutrophils # 3.0 (1.6-8.9) K/mcL BMP 02/06/17 04:17 Sodium 140 Potassium 3.7 Chloride 106 Carbon Dioxide 29 BUN 10 Creatinine 0.96 Glucose 117 H Calcium 8.6 Liver Function 02/06/17 Range/Units 04:17 Total Bilirubin 0.7 (0.2-1.2) mg/dL Direct Bilirubin 0.4 (0.0-0.5) mg/dL AST 198 H (5-34) Units/L ALT 297 H (0-55) Units/L Alkaline Phosphatase 123 (38-126) Units/L Albumin 2.9 L (3.5-5.0) g/dL Consult Discharge Plan - Plan Referrals: NONE,PCP [Primary Care Provider] -
--- NOTE | 2017-02-06 14:03 | Consult Note ---
Date of Encounter: 02/06/17 Time of Encounter: 12:36 Assessment & Recommendation (1) Acute psychosis Current visit: Yes Status: Acute (2) Methamphetamine abuse Current visit: Yes Status: Acute (3) Cannabis abuse Current visit: Yes Status: Acute History of Present Illness Requesting Physician: Shantal Louise History of present illness: Mr. Swanson is a 31 year old male seen today for follow up, h/o acute psychosis sec. to amphetamine abuse / r/o Bipolar affective disorder. patient has used cannabis and has inpatient admission in 2015 for same reason as per him but unable to recall more. Patient seen Today , he was in bed, still irritable loud at times but able to give me some history. as per patient he wants to know why he is here and I want to know what kind of bacteria is in my blood. " I have fucking creatures in my arm " I will try to take them out of my skin , look at my neck. i have tried alcohol /hydrogen peroxide to take them out but nothing works. he is still seeing them and angry why we are not able to do any thing . he is still psychotic , having visual hallucinations, agitation , irritable, moods up and down , denies si/hi. has no insight and poor judgement. PLAN Patient needs continued monitoring and inpatient psychiatric regardig his psychosis and agitation. case d/w YANG Lozoya and update given. Thank you for consult. CC: Shantal Louise Past Med Surg Social Fam HX - Past Medical History Medical history: asthma, hepatitis, other - Past Psychiatric History Psychiatric history: Reports: other (patient states was admitted in 2015 but doenot think was psychiatric .) Family psychiatric history: Unknown Family History of Suicide: Unknown - Social History Smoking Status: Current every day smoker Smokeless Tobacco Status: No Alcohol use: occasionally Drug use: marijuana, methamphetamine - Family History Mother Living Status: Still Living Hx Family Cardiac Disorders: Yes Hx Family Endocrine Disorder: Yes (diabetes) Father Living Status: Age at : 57 Cause of : lung cancer Hx Family Endocrine Disorder: Yes Medications & Allergies No Known Home Drugs 02/05/17 [History] Allergies tramadol [From Ultram] Allergy (Verified 02/04/17 15:05) Rash Review of Systems Psychiatric: Reports: auditory hallucinations, visual hallucinations, irritability Mental Status Exam Level of alertness: Alert Patient appearance: Appropriate Behavior: agitated, hostile, uncooperative Psychomotor activity: Agitated Eye contact: Minimal Contact Mood description: Angry, Irritable Affect description: congruent with mood Speech pattern: Includes Profanity Speech volume: Loud Thought process: Disorganized, Perseveration Thought content: Yes Preoccupation Perceptual disturbances: Yes Auditory hallucinations, Yes Visual hallucinations Attention span: Unable to Sustain Attention Memory description: Recent Impaired, Remote Impaired Patient reliability: Not Reliable Historian Intelligence estimate: Average Judgment: Poor Insight: None Results - Vital Signs Vital signs: Temp Pulse Resp BP Pulse Ox 98.1 F 90 17 130/79 98 02/06/17 12:38 02/06/17 12:38 02/06/17 12:38 02/06/17 12:38 02/06/17 12:38 - Labs Labs: Laboratory Last Values WBC 6.8 K/mcL (4.3-11.1) 02/06/17 04:17 RBC 4.95 M/mcL (4.19-5.50) 02/06/17 04:17 Hgb 14.2 g/dL (12.9-16.9) 02/06/17 04:17 Hct 42.7 % (37.5-50.1) 02/06/17 04:17 MCV 86.3 fL (83.0-100.0) 02/06/17 04:17 MCH 28.7 pg (28.0-33.3) 02/06/17 04:17 MCHC 33.3 g/dL (31.6-35.5) 02/06/17 04:17 RDW 13.2 % (11.5-14.5) 02/06/17 04:17 Plt Count 318 K/mcL (140-400) 02/06/17 04:17 MPV 8.3 fL (9.4-12.4) L 02/06/17 04:17 Immature Gran % 0.3 % (0-4) 02/06/17 04:17 Seg Neutrophils % 43.8 % 02/06/17 04:17 Band Neutrophils % 2.0 % (0-4) 02/05/17 09:19 Lymphocytes % 40.6 % 02/06/17 04:17 Monocytes % 9.1 % 02/06/17 04:17 Eosinophils % 4.7 % 02/06/17 04:17 Basophils % 1.5 % 02/06/17 04:17 Neutrophils # 3.0 K/mcL (1.6-8.9) 02/06/17 04:17 Lymphocytes # 2.8 K/mcL (0.6-4.6) 02/06/17 04:17 Monocytes # 0.6 K/mcL (0.0-1.3) 02/06/17 04:17 Eosinophils # 0.3 K/mcL (0.0-0.6) 02/06/17 04:17 Basophils # 0.1 K/mcL (0.0-0.2) 02/06/17 04:17 Platelet Estimate Normal (Normal) 02/05/17 09:19 Immature Plt Fraction 1.1 % (1.1-6.1) 02/04/17 15:36 ESR 25 mm/hr (0-10) H 02/04/17 17:46 Sodium 140 mEq/L (136-145) 02/06/17 04:17 Potassium 3.7 mEq/L (3.5-4.5) 02/06/17 04:17 Chloride 106 mEq/L (98-109) 02/06/17 04:17 Carbon Dioxide 29 mEq/L (19-29) 02/06/17 04:17 BUN 10 mg/dL (8-26) 02/06/17 04:17 Creatinine 0.96 mg/dL (0.72-1.25) 02/06/17 04:17 Est GFR ( Amer) > 60 (> 60) 02/06/17 04:17 Est GFR (Non-Af Amer) > 60 (> 60) 02/06/17 04:17 BUN/Creatinine Ratio 10 (6-26) 02/06/17 04:17 Glucose 117 mg/dL (70-99) H 02/06/17 04:17 Calculated Osmolality 290 (280-300) 02/06/17 04:17 Calcium 8.6 mg/dL (8.6-10.8) 02/06/17 04:17 Phosphorus 3.1 mg/dL (2.3-4.7) 02/06/17 04:17 Magnesium 2.2 mg/dL (1.6-2.6) 02/06/17 04:17 Total Bilirubin 0.7 mg/dL (0.2-1.2) 02/06/17 04:17 Direct Bilirubin 0.4 mg/dL (0.0-0.5) 02/06/17 04:17 Indirect Bilirubin 0.3 mg/dL (0.0-1.2) 02/06/17 04:17 AST 198 Units/L (5-34) H 02/06/17 04:17 ALT 297 Units/L (0-55) H 02/06/17 04:17 Alkaline Phosphatase 123 Units/L (38-126) 02/06/17 04:17 Troponin I 0.00 ng/mL (0-0.03) 02/04/17 17:46 C-Reactive Protein 5 mg/L (Less than 5) H 02/04/17 17:46 Serum Total Protein 6.3 g/dL (6.0-8.3) 02/06/17 04:17 Albumin 2.9 g/dL (3.5-5.0) L 02/06/17 04:17 Globulin 3.4 g/dL (2.4-3.5) 02/06/17 04:17 Albumin/Globulin Ratio 0.9 (1.1-2.2) L 02/06/17 04:17 Urine Color Yellow (Yellow) 02/04/17 20:48 Urine Clarity Clear (Clear) 02/04/17 20:48 Urine pH 6.0 pH Units (5.0-8.0) 02/04/17 20:48 Ur Specific [place] 1.017 (1.010-1.025) 02/04/17 20:48 Urine Protein Negative mg/dL (Neg-Trace) 02/04/17 20:48 Urine Glucose (UA) Normal mg/dL (Normal) 02/04/17 20:48 Urine Ketones Negative mg/dL (Negative) 02/04/17 20:48 Urine Blood Negative (Negative) 02/04/17 20:48 Urine Nitrite Negative (Negative) 02/04/17 20:48 Urine Bilirubin Negative (Negative) 02/04/17 20:48 Urine Urobilinogen Normal mg/dL (Normal) 02/04/17 20:48 Ur Leukocyte Esterase Negative (Negative) 02/04/17 20:48 Ur Culture Indicated? NO (NO) 02/04/17 20:48 Urine Opiates Screen Negative ng/mL (Mzceuu=943) 02/04/17 20:48 Ur Barbiturates Screen Negative ng/mL (Mmsbsa=214) 02/04/17 20:48 Ur Phencyclidine Scrn Negative ng/mL (Cutoff=25) 02/04/17 20:48 Ur Amphetamines Screen Positive ng/mL (Plmame=7652) H 02/04/17 20:48 U Benzodiazepines Scrn Negative ng/mL (Flwxju=482) 02/04/17 20:48 Urine Cocaine Screen Negative ng/mL (Cutoff= 300) 02/04/17 20:48 U Marijuana (THC) Screen Positive ng/mL (Cutoff = 50) H 02/04/17 20:48 Hepatitis A IgM Ab Nonreactive (Nonreactive) 02/04/17 17:46 Hep Bs Antigen Nonreactive (Nonreactive) 02/04/17 17:46 Hep B Core IgM Ab Nonreactive (Nonreactive) 02/04/17 17:46 Hepatitis C Ab Screen Reactive (Nonreactive) H 02/04/17 17:46 Consult Discharge Plan - Plan Referrals: NONE,PCP [Primary Care Provider] -
[2017-02-06] MEDS ORDERED: OLANZapine 10 MG VIAL IM ONE (16:40)
[2017-02-06] MEDS ORDERED: Water for inj. (sterile) 10 ML IV ONE (16:49)
--- NOTE | 2017-02-06 18:10 | Electrocardiograph Report ---
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
[2017-02-06] MEDS: Nicotine 14 MG PATCH.TD24 TD SCH (19:54)
[2017-02-07 04:57] LABS: Basophils # 0.1 K/mcL (0.0-0.2); Basophils % 1.2 %; Eosinophils # 0.4 K/mcL (0.0-0.6); Eosinophils % 5.2 %; Hematocrit 44.9 % (37.5-50.1); Hemoglobin 14.6 g/dL (12.9-16.9); Immature Granulocytes % 0.3 % (0-4); Lymphocytes # 2.8 K/mcL (0.6-4.6); Lymphocytes % 41.6 %; Mean Corpuscular HGB Conc 32.5 g/dL (31.6-35.5); Mean Corpuscular Hemoglobin 27.9 pg (28.0-33.3); Mean Corpuscular Volume 85.7 fL (83.0-100.0); Mean Platelet Volume 8.4 fL (9.4-12.4); Monocytes # 0.6 K/mcL (0.0-1.3); Monocytes % 9.1 %; Neutrophils # 2.9 K/mcL (1.6-8.9); Platelet Count 333 K/mcL (140-400); Red Blood Count 5.24 M/mcL (4.19-5.50); Red Cell Distribution Width 13.1 % (11.5-14.5); Segmented Neutrophils % 42.6 %
[2017-02-07 05:05] LABS: Magnesium 2.1 mg/dL (1.6-2.6); Phosphorous 3.8 mg/dL (2.3-4.7)
[2017-02-07 05:09] LABS: Alanine Aminotransferase 331 Units/L (0-55); Albumin/Globulin Ratio 0.9 (1.1-2.2); Alkaline Phosphatase 124 Units/L (38-126); Aspartate Amino Transferase 214 Units/L (5-34); BUN/Creatinine Ratio 13 (6-26); Bilirubin,Direct 0.3 mg/dL (0.0-0.5); Bilirubin,Indirect 0.4 mg/dL (0.0-1.2); Bilirubin,Total 0.7 mg/dL (0.2-1.2); Blood Urea Nitrogen 12 mg/dL (8-26); Calcium 8.9 mg/dL (8.6-10.8); Carbon Dioxide 33 mEq/L (19-29); Chloride 107 mEq/L (98-109); Globulin 3.4 g/dL (2.4-3.5); Glucose 90 mg/dL (70-99); Osmolality,Calculated 295 (280-300); Potassium 3.6 mEq/L (3.5-4.5); Sodium 143 mEq/L (136-145); Total Protein 6.4 g/dL (6.0-8.3); eGFR For African Americans > 60 (> 60); eGFR For Non-African Americans > 60 (> 60)
[2017-02-07 05:31] LABS: Platelet Estimate Normal (Normal); Reactive Lymphocytes Present (Not Present)
[2017-02-07] MEDS: *HR* Enoxaparin 40 MG/0.4 ML SYRINGE SQ SCH (05:49)
[2017-02-07 07:39] VITALS: BP 109/43
--- NOTE | 2017-02-07 08:34 | Discharge Summary ---
Date of Encounter: 02/07/17 Time of Encounter: 08:24 - Discharge Diagnosis (1) Acute psychosis Priority: Primary Status: Acute (2) Polysubstance abuse Priority: Secondary Status: Chronic (3) Hepatitis C Priority: Secondary Status: Chronic Qualifiers: Viral hepatitis chronicity: unspecified Hepatic coma status: without hepatic coma Qualified Code(s): B19.20 - Unspecified viral hepatitis C without hepatic coma - Discharge Medications Home Medications: No Known Home Drugs 02/05/17 [History] Allergies/Adverse Reactions: Allergies tramadol [From Ultram] Allergy (Verified 02/04/17 15:05) Rash Date of admission: 02/05/17 05:55 Primary care physician: PCP NONE Consults: 02/05/17 06:00 Consult to Infectious Diseases [CONS] Routine Consulting Provider: Infectious [facility] [place] Reason for Consult: infectious work up for worms as suggested by patient Call Completed: No Consult to Psychiatry [CONS] Routine Consulting Provider: Psychiatry [place] Reason for Consult: will need inpatient psych, psychosis as eval by your staff Call Completed: No 02/06/17 07:20 Consult to [employer] [CONS] Routine Reason for SW Consult: Discharge planning to inpatient psych facility Discharging clinician: Radha Lewis Anticipated date of discharge: 02/07/17 - Patient Status Disposition: Transfer Psychiatric Hosp Condition: Fair Functional capacity at discharge: independent ambulation Overall status at discharge: patient is back to baseline - Discharge Instructions Follow Up With: NONE,PCP [Primary Care Provider] - Additional Instructions: Please follow up with your primary care physician within one week after your discharge from the hospital. - Diet and Activity Activity: resume usual activities as tolerated Diet: advance to your usual diet Hospital course: Mr. Swanson is a 31 year old male with PMH of polysubstance abuse, IVDA, tobacco abuse, hepatitis C admitted for acute psychosis. Pt was not accepted to psychiatry pending medical clearance. Pt has remained in medicine observation for over 48hours with no metabolic insufficiencies, no infectious etiology present. He has history of chronic hepatitis C and elevated transaminases are consistent with hepatitis C. Patient was evaluated by psychiatry and inpatient psych is recommended. Patient is medically cleared for transfer to psych inpatient. Discharge pending bed availability in psych inpatient. - Time Spent with Patient Total time spent providing and/or coordinating discharge services: Less than 30 minutes - Constitutional Vitals: Temp Pulse Resp BP Pulse Ox 97.8 F 75 16 109/43 100 02/07/17 07:37 02/07/17 07:37 02/07/17 07:37 02/07/17 07:37 02/07/17 07:37 General appearance: Present: A&O X 3, no acute distress - Head Head exam: Present: atraumatic, normocephalic - Respiratory Respiratory exam: Present: CTAB. Absent: respiratory distress, wheezes - Cardiovascular Cardiovascular exam: Present: RRR, +S1, +S2. Absent: diastolic murmur, gallop, rubs, systolic murmur - GI/Abdominal GI/Abdominal exam: Present: normal bowel sounds, soft, no peritoneal signs. Absent: distended, tenderness - Extremities Exam Extremities exam: Present: warm, radial pulses palpable and symetrical. Absent : calf tenderness, cyanotic, pedal edema - Neurological Exam Neurological exam: Present: alert, oriented X3 - Psychiatric Psychiatric exam: Present: anxious - Skin Additional comments: scabs diffusely on bilateral upper and lower extremities, face
[2017-02-07] MEDS: Nicotine 14 MG PATCH.TD24 TD SCH (09:44)
== END 2017-02-07 20:25 ==
LOC: 3BNU 14:45 → EMEROO 14:45 → 3BNU 02-05 06:16
PROVIDERS: ADMIT Internal Medicine Hematology & Oncology; ATTEND Nurse Practitioner Family

== ENCOUNTER 2017-02-07 19:59 | Observation (INO) ==
[2017-02-07] MEDS ORDERED: Haloperidol Lactate 5 MG/ML VIAL IM PRN (20:07)
[2017-02-07] MEDS ORDERED: Mag Hydrox/Al Hydrox/Simeth 30 ML UDC PO PRN (20:07)
[2017-02-07] MEDS ORDERED: Acetaminophen 325 MG TABLET PO PRN (20:07)
[2017-02-07] MEDS ORDERED: *HR* LORazepam 1 MG TABLET PO PRN (20:07)
[2017-02-07] MEDS ORDERED: *HR* LORazepam 2 MG/ML VIAL IM PRN (20:07)
[2017-02-07] MEDS ORDERED: traZODone 50 MG TABLET PO PRN (21:00)
[2017-02-07] MEDS ORDERED: OLANZapine 10 MG TAB.RAPDIS PO SCH (21:00)
[2017-02-07] MEDS ORDERED: MOM Conc 10 ML UD.LIQ PO PRN (21:00)
[2017-02-08] MEDS ORDERED: Nicotine 14 MG PATCH.TD24 TD SCH (09:00)
[2017-02-08 09:50] VITALS: BP 125/78
--- NOTE | 2017-02-08 10:10 | Discharge Summary ---
Date of Encounter: 02/08/17 Time of Encounter: 09:20 History of Present Illness Chief complaint: "I was really confused." Admitted From: Intrahospital Transfer History of Present Illness: Mr. Swanson is a 31 year old male with a history of methamphetamine and cannabis use as well as a past history of alcohol abuse who presented to the hospital with tactile hallucinations and paranoia. He initially reported to ER staff that he had ingested some kind of warm and there was an infection in his body. Patient was admitted to the medical floor unmonitored. No evidence of infection was found. Patient was positive for both amphetamines and cannabis in his urine tox. Psychiatry did an evaluation and found to be acutely psychotic. Patient was excoriating his skin secondary to what he thought was worms crawling in his skin. Once he was medically cleared patient was sent to for psychiatric stabilization. On interview, patient is calm and cooperative. He does report he was "thinking weird things." He admits to drug use but denies ever having any issue with auditory or visual hallucinations. He does remember some irritability and paranoia. He now denies symptoms like this. He denies depressed mood at this time. He admits to a lot of life stressors including being unable to see his father and 6-year-old children. His sisters are helping him be able to contact family so he can get visitation. He states that he has been clean from alcohol for a while and his life was getting back on track for the decided to use stimulants. Patient states he has only had one other use in the past when he was 15. He did not have a psychotic episode after use that time. He denies other history of any kind of psychosis. He denies previous psychiatric admissions. He denies suicidal or homicidal ideation, intent, or plan. He does report the Zyprexa started on the medical floor helps with sleep. He does have intermittently difficulty falling asleep. He denies grandiosity, decreased need for sleep, impulsivity. Past Med Surg Social Fam HX - Past Medical History Medical history: asthma, hepatitis, other - Past Psychiatric History Psychiatric history: Denies: prior suicide attempt, previous psychiatric hospitalization Family psychiatric history: No Family History of Suicide: None - Social History Smoking Status: Current every day smoker Smokeless Tobacco Status: No Alcohol use: none Drug use: marijuana, methamphetamine - Family History Mother Living Status: Still Living Hx Family Cardiac Disorders: Yes Hx Family Respiratory Disorders: Yes (sleep apnea) Hx Family Endocrine Disorder: Yes (diabetes) Father Living Status: Hx Family Cancer: Yes (lung) Hx Family Endocrine Disorder: Yes Medications - Discharge Medications Prescriptions: OLANZapine [Zyprexa Zydis] 10 mg PO HS #30 tab traZODone [TraZODone] 50 mg PO HS PRN #30 tab PRN Reason: Insomnia No Known Home Drugs 02/05/17 [History] OLANZapine [Zyprexa Zydis] 10 mg PO HS #30 tab 02/08/17 [Rx] traZODone [TraZODone] 50 mg PO HS PRN #30 tab 02/08/17 [Rx] Allergies tramadol [From [facility]] Allergy (Verified 02/04/17 15:05) Rash Review of Systems Constitutional: Denies: fever, chills, weakness, weight change Eyes: Denies: eye pain, vision change Ears, Nose, Throat: Denies: ear pain, throat pain, dental pain, hearing loss, congestion Cardiovascular: Denies: chest pain, palpitations, dyspnea on exertion Respiratory: Denies: cough, dyspnea, wheezes Gastrointestinal: Denies: abdominal pain, nausea, vomiting, diarrhea, constipation Genitourinary male: Denies: urgency, dysuria, frequency, genital lesions Genitourinary female: Denies: urgency, dysuria, frequency, abnormal menses, dyspareunia Musculoskeletal: Denies: joint swelling, joint pain Integumentary: Denies: rash, lesions, pruritus Neurological: Denies: headache, weakness, numbness, memory loss Psychiatric: Reports: anxiety, abnormal sleep pattern, difficulty concentrating , irritability. Denies: suicidal ideation, change in appetite, auditory hallucinations, change in libido, mood swings, panic attacks Endocrine: Denies: fatigue, heat or cold intolerance Hematologic/Lymphatic: Denies: easy bruising, lymphadenopathy Allergic/Immunologic: Denies: urticaria, itchy eyes Mental Status Exam - Mental Status Exam Patient orientation: Yes Person, Yes Time, Yes Place Level of alertness: Alert Patient appearance: Appropriate, Well Groomed Behavior: calm, cooperative Psychomotor activity: Normal Eye contact: Maintains Eye Contact Mood description: Euthymic/stable Affect description: congruent with mood, full range Speech pattern: Normal rate, Normal rhythm, Normal tone Speech Volume: Normal Thought process: Linear, Goal Oriented Thought Content: No Suicidal ideation, No Homicidal ideation, No Overt delusions Perceptual Disturbances: No Auditory hallucinations, No Visual hallucinations Judgment: Limited Insight: Partial Results - Vital Signs Vital signs: Temp Pulse Resp BP 97 F L 103 16 125/78 02/08/17 09:00 02/08/17 09:00 02/08/17 09:00 02/08/17 09:00 Diagnosis - Discharge Diagnosis (1) Acute psychosis Priority: Primary Status: Acute (2) Cannabis abuse Priority: Secondary Status: Acute (3) Methamphetamine abuse Priority: Secondary Status: Acute Assessment and Plan - Patient/Caregiver Discharge Instructions Activity: resume usual activities as tolerated Diet: regular diet - Follow up Plan Follow up with: NONE,PCP [Primary Care Provider] - Functional capacity at discharge: independent ambulation Overall status at discharge: Stable Disposition: Home, Self-Care Provider Date of admission: 02/07/17 19:59 Primary care physician: PCP ERYN Discharging clinician: Ekaterina Agrawal Hospital Course Hospital course: Mr. Swanson is a 31 year old male with a history of methamphetamine abuse and cannabis abuse who presented to the hospital with psychosis likely secondary to methamphetamine use. He was hospitalized medically and then sent to 1 a for further psychiatric stabilization. Upon arrival to patient has been alert and oriented and not responding to internal stimuli. He was monitored overnight and was interacting appropriately with peers and staff. He was placed on suicide precautions and close observation per unit protocol. He was offered group as well as recreational therapy. Patient was also offered materials on outpatient drug treatment programs. Patient verbalized understanding of the fact that the methamphetamine probably played a role in his recent episode of psychosis. Family has been in contact with patient and feels that he is back to his baseline. He will be discharged with a 30 day prescription of Zyprexa and follow up with PCP. At the time of discharge patient does not appear to be responding to internal stimuli. He is alert and oriented. - Time Spent with Patient Total time spent providing and/or coordinating discharge services: Less than 30 minutes Procedures - Procedures Procedures: Medication Management, Crisis Stabilization, Supportive Therapy, Group Therapy, Psychoeducational Therapy Quality - Multiple Antipsychotics Patient discharged on 2 or more antipsychotic medications: No
== END 2017-02-08 10:55 | disposition home or self-care (01) ==
LOC: 1ANU 19:59 → INTOOBSV 19:59
PROVIDERS: ADMIT Student in an Organized Health Care Education/Training Program; ATTEND Student in an Organized Health Care Education/Training Program

== ENCOUNTER 2017-06-23 18:25 | Inpatient (IN) ==
[2017-06-23] MEDS ORDERED: Vancomycin 1,250 MG in D5% in Water 250 ML IVPB ONE (18:45)
[2017-06-23] MEDS ORDERED: Piperacillin/Tazobactam 3.375 GM in Water for inj. (sterile) 20 ML IVP ONE (18:45)
--- NOTE | 2017-06-23 18:57 | Emergency Department Note ---
Disposition Clinical Impression: Methamphetamine abuse, Polysubstance abuse Abscess of skin or subcutaneous tissue Qualifiers: Site of cutaneous abscess: face Qualified Code(s): L02.01 - Cutaneous abscess of face Cellulitis Qualifiers: Site of cellulitis: face Qualified Code(s): L03.211 - Cellulitis of face Disposition: Admitted As Inpatient Condition: Undetermined Referrals: NONE,PCP [Primary Care Provider] - Forms: ED Satisfaction Letter Time of Disposition: 21:04 Skin/Abscess/FB HPI Chief complaint: ED Skin/Abscess/Foreign Body Stated complaint: "abcess" Time Seen by Provider: 06/23/17 18:45 Source: patient Mode of arrival: ambulatory Limitations: no limitations Nursing Notes Reviewed: Yes Vital Signs Reviewed: Yes HPI Narrative: 32-year-old male with extensive history of IV drug abuse, arrives today or see emergency department with concern of skin abscess and infection. The patient states this is been ongoing for months. He arrives to the emergency department with a heart rate in the 130s. He is also febrile. The patient states the left side of his face and the left neck have continued to worsen. The patient denies any difficulty breathing, abdominal pain, nausea, vomiting, diarrhea. Pt Subjective Complaint: abscess/boil Onset (ago): month(s) Tetanus Up to Date: no Location: generalized, face, neck Severity: moderate, severe Severity scale (1-10): 8 Quality: burning, aching Consistency: constant Improves with: none Worsens with: none Context: IVDA Associated symptoms: Reports: fever, chills Treatments prior to arrival: none Previous Rx's Medication Instructions Recorded OLANZapine [Zyprexa Zydis] 10 mg PO HS #30 tab 02/08/17 traZODone [TraZODone] 50 mg PO HS PRN #30 tab 02/08/17 Sulfamethoxazole/Trimeth DS 1 each PO BID #20 tablet 03/09/17 [Bactrim DS] Sulfamethoxazole/Trimeth DS 1 each PO BID #28 tablet 04/15/17 [Bactrim DS] Allergies Allergy/AdvReac Type Severity Reaction Status Date / Time tramadol [From Ultram] Allergy Rash Verified 06/23/17 18:43 All systems ED: reviewed and negative except as stated. Constitutional: Reports: fever, chills. Denies: weakness Eyes: Denies: eye discharge, vision change ENT ED: Reports: congestion. Denies: ear pain, dental pain, hearing loss Cardiovascular: Denies: chest pain Respiratory: Denies: cough, dyspnea Gastrointestinal: Denies: abdominal pain, nausea, vomiting Genitourinary: Denies: urgency, dysuria Musculoskeletal: Reports: neck pain, myalgia. Denies: back pain, arthralgia Integumentary: Reports: lesions Neurological: Reports: headache. Denies: weakness, numbness, paresthesias, confusion, vertigo Past Medical History - Past Medical History Attestation: Yes The following information was validated with the patient. Source: patient Medical history: Reports: asthma, hepatitis, other Surgical history: Reports: non-contributory Psychiatric history: Reports: other - Social History Smoking Status: Current every day smoker Smokeless Tobacco Status: No Alcohol use: Reports: none Drug use: Reports: opiates, marijuana, methamphetamine, IV Drug Use Physical Exam - General Limitations: no limitations General appearance: alert, in no apparent distress - Head Head exam: atraumatic, normocephalic - Eye Eye exam: Present: normal appearance, PERRL, EOMI - ENT ENT exam: normal oropharynx, mucous membranes moist, other (The patient has a large abscesses on the left side of his face as well as posteriorly behind the left ear. Large amount of erythema and swelling.) - Neck Neck exam: Present: full ROM, tenderness, lymphadenopathy. Absent: trachea midline - Chest Chest inspection: Present: normal inspection - Respiratory Respiratory exam: Present: normal lung sounds bilaterally - Cardiovascular Cardiovascular exam: Present: normal rhythm, tachycardia, normal heart sounds - Abdominal Exam Abdominal exam: Present: soft, Non-Tender. Absent: tenderness, distention, guarding, rebound, rigidity - Extremities Exam Extremities exam: Present: normal inspection, full ROM. Absent: tenderness, pedal edema - Neurological Exam Neurological exam: Present: alert, oriented X3 - Skin Skin exam: Present: other (Patient has large abscesses across the left side of his face, left neck just posterior to the left ear. There are numerous lesions across bilateral arms and face for more patient is been picking.) Course Vital Signs Temperature 100.0 F H 06/23/17 18:39 Pulse Rate 141 06/23/17 18:39 Respiratory Rate 18 06/23/17 18:39 Blood Pressure 138/91 06/23/17 18:39 O2 Sat by Pulse Oximetry 99 06/23/17 18:39 Temperature 100.0 F H 06/23/17 18:39 Pulse Rate 133 06/23/17 18:49 Respiratory Rate 16 06/23/17 18:49 Blood Pressure 144/91 06/23/17 18:49 O2 Sat by Pulse Oximetry 97 06/23/17 18:49 Oxygen Delivery Oxygen Delivery Room Air Procedures - Abscess I/D Consent obtained: verbal consent Site: face, neck Side (if applicable): left Local Anesthetic: lidocaine 1%, with epi Amount of Anesthesia Used (mL): 2 Technique: incised with #11 blade Amount of fluid: 10 Irrigation: No Packing used?: none Complications: other (none) Skin/Abscess/Foreign Body - MDM Narrative Medical decision making narrative: Workup in the emergency department demonstrates tachycardia as well as soft tissue abscesses and cellulitis of the face and neck. The patient was started on Vigamox and Zosyn with concern for sepsis. The patient has no leukocytosis, and no left shift. Patient remained slightly tachycardic which is likely associated with accommodation of infection as well as recent methamphetamine use. Given the patient's symptoms and finding an extensive abscesses and cellulitis on the face and neck, we will admit the patient to the hospitalist at this time. The patient had 2 abscesses on the left side of his face and the left side of his neck that were drained. No compilations associated with it. Accepted by Dr. Lerner. - Lab Data Lab results reviewed: Yes I reviewed the patient's lab results. Result diagrams: 06/23/17 19:05 06/23/17 19:05 Lab Results 06/23/17 06/23/17 06/23/17 Range/Units 19:05 19:05 19:05 WBC 8.8 (4.3-11.1) K/mcL RBC 4.93 (4.19-5.50) M/mcL Hgb 14.8 (12.9-16.9) g/dL Hct 42.8 (37.5-50.1) % MCV 86.8 (83.0-100.0) fL MCH 30.0 (28.0-33.3) pg MCHC 34.6 (31.6-35.5) g/dL RDW 12.3 (11.5-14.5) % Plt Count 296 (140-400) K/mcL MPV 8.4 L (9.4-12.4) fL Immature Gran % 0.6 (0-4) % Seg Neutrophils % 74.7 % Lymphocytes % 15.9 % Monocytes % 5.9 % Eosinophils % 2.2 % Basophils % 0.7 % Neutrophils # 6.6 (1.6-8.9) K/mcL Lymphocytes # 1.4 (0.6-4.6) K/mcL Monocytes # 0.5 (0.0-1.3) K/mcL Eosinophils # 0.2 (0.0-0.6) K/mcL Basophils # 0.1 (0.0-0.2) K/mcL PT 12.3 H (9.4-12.1) Seconds INR 1.1 APTT 29.3 (26.0-36.0) Seconds Sodium 137 (136-145) mEq/L Potassium 3.9 (3.5-4.5) mEq/L Chloride 97 L (98-109) mEq/L Carbon Dioxide 32 H (19-29) mEq/L BUN 12 (8-26) mg/dL Creatinine 0.86 (0.72-1.25) mg/dL Est GFR ( Amer) > 60 (> 60) Est GFR (Non-Af Amer) > 60 (> 60) BUN/Creatinine Ratio 14 (6-26) Glucose 143 H (70-99) mg/dL Calculated Osmolality 286 (280-300) Lactic Acid (0.5-2.2) mmol/L Calcium 9.3 (8.6-10.8) mg/dL Magnesium 2.1 (1.6-2.6) mg/dL Total Bilirubin 0.6 (0.2-1.2) mg/dL Direct Bilirubin 0.3 (0.0-0.5) mg/dL Indirect Bilirubin 0.3 (0.0-1.2) mg/dL AST 117 H (5-34) Units/L ALT 232 H (0-55) Units/L Alkaline Phosphatase 113 (38-126) Units/L Troponin I (0-0.03) ng/mL Serum Total Protein 7.9 (6.0-8.3) g/dL Albumin 3.3 L (3.5-5.0) g/dL Globulin 4.6 H (2.4-3.5) g/dL Albumin/Globulin Ratio 0.7 L (1.1-2.2) Urine Color (Yellow) Urine Clarity (Clear) Urine pH (5.0-8.0) pH Units Ur Specific [place] (1.010-1.025) Urine Protein (Neg-Trace) mg/dL Urine Glucose (UA) (Normal) mg/dL Urine Ketones (Negative) mg/dL Urine Blood (Negative) Urine Nitrite (Negative) Urine Bilirubin (Negative) Urine Urobilinogen (Normal) mg/dL Ur Leukocyte Esterase (Negative) Urine Microscopic RBC (0-3) per hpf Urine Microscopic WBC (0-3) per hpf Ur Squamous Epith Cells (None-Few) per lpf Urine Bacteria (None-Few) per hpf Hyaline Casts (None-Few) per lpf Ur Culture Indicated? (NO) 06/23/17 06/23/17 06/23/17 Range/Units 19:05 19:05 19:42 WBC (4.3-11.1) K/mcL RBC (4.19-5.50) M/mcL Hgb (12.9-16.9) g/dL Hct (37.5-50.1) % MCV (83.0-100.0) fL MCH (28.0-33.3) pg MCHC (31.6-35.5) g/dL RDW (11.5-14.5) % Plt Count (140-400) K/mcL MPV (9.4-12.4) fL Immature Gran % (0-4) % Seg Neutrophils % % Lymphocytes % % Monocytes % % Eosinophils % % Basophils % % Neutrophils # (1.6-8.9) K/mcL Lymphocytes # (0.6-4.6) K/mcL Monocytes # (0.0-1.3) K/mcL Eosinophils # (0.0-0.6) K/mcL Basophils # (0.0-0.2) K/mcL PT (9.4-12.1) Seconds INR APTT (26.0-36.0) Seconds Sodium (136-145) mEq/L Potassium (3.5-4.5) mEq/L Chloride (98-109) mEq/L Carbon Dioxide (19-29) mEq/L BUN (8-26) mg/dL Creatinine (0.72-1.25) mg/dL Est GFR ( Amer) (> 60) Est GFR (Non-Af Amer) (> 60) BUN/Creatinine Ratio (6-26) Glucose (70-99) mg/dL Calculated Osmolality (280-300) Lactic Acid 2.1 (0.5-2.2) mmol/L Calcium (8.6-10.8) mg/dL Magnesium (1.6-2.6) mg/dL Total Bilirubin (0.2-1.2) mg/dL Direct Bilirubin (0.0-0.5) mg/dL Indirect Bilirubin (0.0-1.2) mg/dL AST (5-34) Units/L ALT (0-55) Units/L Alkaline Phosphatase (38-126) Units/L Troponin I 0.01 (0-0.03) ng/mL Serum Total Protein (6.0-8.3) g/dL Albumin (3.5-5.0) g/dL Globulin (2.4-3.5) g/dL Albumin/Globulin Ratio (1.1-2.2) Urine Color Yellow (Yellow) Urine Clarity Hazy (Clear) Urine pH 6.0 (5.0-8.0) pH Units Ur Specific [place] 1.027 H (1.010-1.025) Urine Protein 30 H (Neg-Trace) mg/dL Urine Glucose (UA) Normal (Normal) mg/dL Urine Ketones Negative (Negative) mg/dL Urine Blood Negative (Negative) Urine Nitrite Negative (Negative) Urine Bilirubin Negative (Negative) Urine Urobilinogen Normal (Normal) mg/dL Ur Leukocyte Esterase Negative (Negative) Urine Microscopic RBC 5-15 H (0-3) per hpf Urine Microscopic WBC 5-15 H (0-3) per hpf Ur Squamous Epith Cells Many H (None-Few) per lpf Urine Bacteria None Seen (None-Few) per hpf Hyaline Casts None Seen (None-Few) per lpf Ur Culture Indicated? NO (NO) 06/23/17 Range/Units 20:29 WBC (4.3-11.1) K/mcL RBC (4.19-5.50) M/mcL Hgb (12.9-16.9) g/dL Hct (37.5-50.1) % MCV (83.0-100.0) fL MCH (28.0-33.3) pg MCHC (31.6-35.5) g/dL RDW (11.5-14.5) % Plt Count (140-400) K/mcL MPV (9.4-12.4) fL Immature Gran % (0-4) % Seg Neutrophils % % Lymphocytes % % Monocytes % % Eosinophils % % Basophils % % Neutrophils # (1.6-8.9) K/mcL Lymphocytes # (0.6-4.6) K/mcL Monocytes # (0.0-1.3) K/mcL Eosinophils # (0.0-0.6) K/mcL Basophils # (0.0-0.2) K/mcL PT (9.4-12.1) Seconds INR APTT (26.0-36.0) Seconds Sodium (136-145) mEq/L Potassium (3.5-4.5) mEq/L Chloride (98-109) mEq/L Carbon Dioxide (19-29) mEq/L BUN (8-26) mg/dL Creatinine (0.72-1.25) mg/dL Est GFR ( Amer) (> 60) Est GFR (Non-Af Amer) (> 60) BUN/Creatinine Ratio (6-26) Glucose (70-99) mg/dL Calculated Osmolality (280-300) Lactic Acid 2.9 H (0.5-2.2) mmol/L Calcium (8.6-10.8) mg/dL Magnesium (1.6-2.6) mg/dL Total Bilirubin (0.2-1.2) mg/dL Direct Bilirubin (0.0-0.5) mg/dL Indirect Bilirubin (0.0-1.2) mg/dL AST (5-34) Units/L ALT (0-55) Units/L Alkaline Phosphatase (38-126) Units/L Troponin I (0-0.03) ng/mL Serum Total Protein (6.0-8.3) g/dL Albumin (3.5-5.0) g/dL Globulin (2.4-3.5) g/dL Albumin/Globulin Ratio (1.1-2.2) Urine Color (Yellow) Urine Clarity (Clear) Urine pH (5.0-8.0) pH Units Ur Specific [place] (1.010-1.025) Urine Protein (Neg-Trace) mg/dL Urine Glucose (UA) (Normal) mg/dL Urine Ketones (Negative) mg/dL Urine Blood (Negative) Urine Nitrite (Negative) Urine Bilirubin (Negative) Urine Urobilinogen (Normal) mg/dL Ur Leukocyte Esterase (Negative) Urine Microscopic RBC (0-3) per hpf Urine Microscopic WBC (0-3) per hpf Ur Squamous Epith Cells (None-Few) per lpf Urine Bacteria (None-Few) per hpf Hyaline Casts (None-Few) per lpf Ur Culture Indicated? (NO) - Radiology Data Radiology results reviewed: Yes I reviewed the patient's radiology results. - EKG Data EKG attestation: Yes I reviewed and interpreted this EKG. EKG results narrative: Heart rate 1 27 bpm. SC interval 170 ms. QTC 362 ms. Sinus tachy[address]. No ST elevation or ST depression noted. No acute changes noted with the exception of sinus tachycardia.
[2017-06-23 19:19] LABS: Basophils # 0.1 K/mcL (0.0-0.2); Basophils % 0.7 %; Eosinophils # 0.2 K/mcL (0.0-0.6); Eosinophils % 2.2 %; Hematocrit 42.8 % (37.5-50.1); Hemoglobin 14.8 g/dL (12.9-16.9); Immature Granulocytes % 0.6 % (0-4); Lymphocytes # 1.4 K/mcL (0.6-4.6); Lymphocytes % 15.9 %; Mean Corpuscular HGB Conc 34.6 g/dL (31.6-35.5); Mean Corpuscular Volume 86.8 fL (83.0-100.0); Mean Platelet Volume 8.4 fL (9.4-12.4); Monocytes # 0.5 K/mcL (0.0-1.3); Monocytes % 5.9 %; Neutrophils # 6.6 K/mcL (1.6-8.9); Platelet Count 296 K/mcL (140-400); Red Blood Count 4.93 M/mcL (4.19-5.50); Red Cell Distribution Width 12.3 % (11.5-14.5); Segmented Neutrophils % 74.7 %
[2017-06-23 19:27] LABS: INR 1.1; Prothrombin Time 12.3 Seconds (9.4-12.1)
[2017-06-23 19:30] LABS: Activated Partial Thrombo Time 29.3 Seconds (26.0-36.0)
[2017-06-23 19:36] LABS: Alanine Aminotransferase 232 Units/L (0-55); Albumin 3.3 g/dL (3.5-5.0); Albumin/Globulin Ratio 0.7 (1.1-2.2); Alkaline Phosphatase 113 Units/L (38-126); Aspartate Amino Transferase 117 Units/L (5-34); BUN/Creatinine Ratio 14 (6-26); Bilirubin,Direct 0.3 mg/dL (0.0-0.5); Bilirubin,Indirect 0.3 mg/dL (0.0-1.2); Bilirubin,Total 0.6 mg/dL (0.2-1.2); Blood Urea Nitrogen 12 mg/dL (8-26); Calcium 9.3 mg/dL (8.6-10.8); Carbon Dioxide 32 mEq/L (19-29); Chloride 97 mEq/L (98-109); Globulin 4.6 g/dL (2.4-3.5); Glucose 143 mg/dL (70-99); Magnesium 2.1 mg/dL (1.6-2.6); Osmolality,Calculated 286 (280-300); Potassium 3.9 mEq/L (3.5-4.5); Sodium 137 mEq/L (136-145); Total Protein 7.9 g/dL (6.0-8.3); eGFR For African Americans > 60 (> 60); eGFR For Non-African Americans > 60 (> 60)
[2017-06-23 19:50] LABS: Bilirubin,Urine Negative (Negative); Blood,Urine Negative (Negative); Color,Urine Yellow (Yellow); Glucose,Urine (UA) Normal (Normal); Ketones,Urine Negative (Negative); Leukocyte Esterase,Urine Negative (Negative); Nitrite,Urine Negative (Negative); Protein,Urine 30 mg/dL (Neg-Trace); Specific Gravity,Urine 1.027 (1.010-1.025); Urobilinogen,Urine Normal (Normal)
[2017-06-23 19:53] LABS: Bacteria,Urine None Seen per hpf (None-Few); Hyaline Casts,Urine None Seen per lpf (None-Few); Squamous Epithelial Cell,Urine Many per lpf (None-Few)
[2017-06-23 19:55] LABS: Clarity,Urine Hazy (Clear)
[2017-06-23] MEDS: 0.9 % Sodium Chloride 1,000 ML IVC SCH (19:57)
--- NOTE | 2017-06-23 20:11 | Emergency Department Note ---
START Narrative - START START: I examined this patient and my medical decision-making was reviewed with the Resident Physician. I agree with the documented findings, disposition and treatment plan as described except to the extent set forth below. 32 year old male with hx of IVDA presents to the ED with complaitns of facial and head abscesses. Nahomi states that he has had increased nausea and voitting with fevers and chills and is tachycardiac to the 140s. Nahomi has two large noticable areas of abscesses to left side of the face in front o the ear along the jaw line and behind his ear concrning for mastoididits. He will get sepsis protocol workup and admitted to medicine. IVX ABX started and IVF now.
[2017-06-23] MEDS ORDERED: *HR* FentaNYL (PF) 100 MCG/2 ML VIAL IVP ONE (20:23)
[2017-06-23] MEDS ORDERED: 0.9 % Sodium Chloride 1,000 ML IVC SCH (20:30)
[2017-06-23] MEDS ORDERED: 0.9 % Sodium Chloride 1,000 ML IVC ONE (20:54)
[2017-06-23] MEDS ORDERED: Naloxone 0.4 MG/ML INJ IVP PRN (22:10)
[2017-06-23] MEDS ORDERED: Ondansetron 4 MG/2 ML VIAL IVP PRN (22:10)
[2017-06-23] MEDS ORDERED: Ibuprofen 400 MG TABLET PO PRN (22:10)
--- NOTE | 2017-06-23 22:16 | Internal Med History&Physical ---
Date of Encounter: 06/23/17 Time of Encounter: 22:13 Assessment and Plan (1) Abscess of skin or subcutaneous tissue Current visit: Yes Status: Acute d/w Dr Yeung assist in care - appreciate assistance IV clinda overnight to cover for stap/strep/MRSA/Anaerobes. IVF Blood cx pend NPO after midnight Also has scabs and several early, developing boils over the head/neck region - likely related to scratching from amphetamine use ?? Qualifiers: Site of cutaneous abscess: face Qualified Code(s): L02.01 - Cutaneous abscess of face (2) Methamphetamine abuse Current visit: Yes Status: Acute discussed cessation (3) Hepatitis C Current visit: No Status: Chronic Qualifiers: Viral hepatitis chronicity: chronic Hepatic coma status: without hepatic coma Qualified Code(s): B18.2 - Chronic viral hepatitis C Internal Medicine - H&P: HPI Chief complaint: Left face swelling History of present illness: Mr. Swanson is a 32 year old male with hx of amphetamine and THC use who presents with left face abscess He reports he has a developing abscess along his left face for several months now and had been ignored and attributed to his drug use. In the last 4-5 days, has been having worsening swelling, local pain 10/10, associated with surround erythema and purulent drainage. Associated with fever/chills for the last 4-5 days. Symptoms did not improve with time, it had gotten worse. He injects and snortes amphetamines. Last used a few days ago Past Med Surg Social Fam HX - Past Medical History Medical history: asthma, hepatitis, other Psychiatric history: other - Past Surgical History Surgical History: non-contributory - Social History Smoking Status: Current every day smoker Smokeless Tobacco Status: No Alcohol use: none Drug use: opiates, marijuana, methamphetamine, IV Drug Use - Family History Mother Living Status: Still Living Hx Family Cardiac Disorders: Yes Hx Family Endocrine Disorder: Yes (diabetes) Father Living Status: Hx Family Endocrine Disorder: Yes Internal Medicine - H&P: Meds OLANZapine [Zyprexa Zydis] 10 mg PO HS #30 tab 02/08/17 [Rx] traZODone [TraZODone] 50 mg PO HS PRN #30 tab 02/08/17 [Rx] Sulfamethoxazole/Trimeth DS [Bactrim DS] 1 each PO BID #20 tablet 03/09/17 [Rx] Sulfamethoxazole/Trimeth DS [Bactrim DS] 1 each PO BID #28 tablet 04/15/17 [Rx] 3 Allergy/AdvReac Type Severity Reaction Status Date / Time tramadol [From Ultram] Allergy Rash Verified 06/23/17 18:43 All Systems PM: A 10-system review of systems was performed and is negative for pertinent findings except as documented above in the HPI. Review of systems: ROS 14 point review of systems reviewed as best as possible given presentation. Pertinent positive or negative as per HPI or otherwise reviewed as negative - Constitutional Vitals: Temp Pulse Resp BP Pulse Ox 100.0 F H 127 16 118/79 98 06/23/17 18:39 06/23/17 21:31 06/23/17 21:40 06/23/17 21:40 06/23/17 21:31 Exam: General - AAO x 3 Psych - Appropriate affect/speech. No agitation Eyes - ROCHELLE. Eye lids intact. No scleral icterus Neuro - No gross peripheral or central neuro deficits with intact CN 2-12 exam Heart - Sinus. RRR. S1 and S2 present. No added HS/murmurs appreciated. No elevated JVD appreciated. Lung - Adequate air entry b/l, No crackles/wheezes appreciated GI - Soft, non-tender. No hepatosplenomegaly/ascites. BS+ - No CVA/suprapubic tenderness or palpable bladder distension Skin - Scabs all over the face and head. Track teixeira. Large swelling, erythema over the left angle of jaw with another focus posterior to left ear Internal Med - H&P Results - Labs CBC & Chem 7: 06/23/17 19:05 06/23/17 19:05
[2017-06-23] MEDS: traZODone 50 MG TABLET PO PRN (23:00)
[2017-06-23] MEDS: Ringers Solution, Lactated 1,000 ML IVC SCH (23:01)
[2017-06-24] MEDS: Clindamycin 600 MG/50 ML 600 MG/50 ML IV.SOLN IVPB SCH ×3 (01:45→16:01)
[2017-06-24 04:12] LABS: Basophils # 0.1 K/mcL (0.0-0.2); Basophils % 0.8 %; Eosinophils # 0.3 K/mcL (0.0-0.6); Eosinophils % 3.3 %; Hematocrit 36.1 % (37.5-50.1); Immature Granulocytes % 0.3 % (0-4); Lymphocytes # 1.8 K/mcL (0.6-4.6); Mean Corpuscular HGB Conc 34.1 g/dL (31.6-35.5); Mean Corpuscular Hemoglobin 29.5 pg (28.0-33.3); Mean Corpuscular Volume 86.6 fL (83.0-100.0); Mean Platelet Volume 8.5 fL (9.4-12.4); Neutrophils # 5.8 K/mcL (1.6-8.9); Platelet Count 276 K/mcL (140-400); Red Blood Count 4.17 M/mcL (4.19-5.50); Red Cell Distribution Width 12.3 % (11.5-14.5); Segmented Neutrophils % 64.6 %
[2017-06-24 04:26] LABS: BUN/Creatinine Ratio 12 (6-26); Blood Urea Nitrogen 9 mg/dL (8-26); Calcium 8.4 mg/dL (8.6-10.8); Carbon Dioxide 29 mEq/L (19-29); Chloride 104 mEq/L (98-109); Glucose 109 mg/dL (70-99); Osmolality,Calculated 287 (280-300); Potassium 3.8 mEq/L (3.5-4.5); Sodium 139 mEq/L (136-145); eGFR For African Americans > 60 (> 60); eGFR For Non-African Americans > 60 (> 60)
[2017-06-24 04:29] LABS: Hemoglobin 12.3 g/dL (12.9-16.9)
[2017-06-24] MEDS: Ringers Solution, Lactated 1,000 ML IVC SCH (08:27)
--- NOTE | 2017-06-24 11:37 | Internal Med Progress Note ---
Date of Encounter: 06/24/17 Time of Encounter: 11:00 - Assessment and plan (1) Sepsis Current Visit: Yes Status: Acute Assessment and plan: Patient presented with fever 100.6, Tachycardia up to 126, no leukocytosis, patient has multiple abscesses and cellulitis on his head and neck Continue Clindamycin Follow blood and wound cultures Wound nurse to eval Add vancomycin, pharmacy to dose pain control and IVF hydration Qualifiers: Sepsis type: sepsis due to unspecified organism Qualified Code(s): A41.9 - Sepsis, unspecified organism (2) Hepatitis C Current Visit: Yes Status: Chronic Assessment and plan: Transaminitis, monitor LFTs Follow up with PCP upon discharge Patient continues to use IV drugs Qualifiers: Viral hepatitis chronicity: chronic Hepatic coma status: without hepatic coma Qualified Code(s): B18.2 - Chronic viral hepatitis C (3) Methamphetamine abuse Current Visit: Yes Status: Chronic Assessment and plan: Encourage cessation (4) Transaminitis Current Visit: Yes Status: Acute Assessment and plan: Monitor LFT (5) Cellulitis Current Visit: Yes Status: Acute Assessment and plan: With abscess Surgery has been consulted Continue clindamycin Add vancomycin, pharmacy to dose IVF, pain control CUltures done in ER, will escalate antibiotics prn Qualifiers: Site of cellulitis: head Qualified Code(s): L03.811 - Cellulitis of head [ any part, except face] (6) Abscess of skin or subcutaneous tissue Current Visit: Yes Status: Acute Assessment and plan: As above Qualifiers: Site of cutaneous abscess: face Qualified Code(s): L02.01 - Cutaneous abscess of face - Subjective Interval history: Seen and evaluated at bedside Known Hep C and meth/opiates/THC abuse, IVDA Admitted for multiple facial cellulitis with abscesses - Constitutional Vitals: Temp Pulse Resp BP Pulse Ox 97.6 F 91 15 103/58 100 06/24/17 08:08 06/24/17 08:08 06/24/17 08:08 06/24/17 08:08 06/24/17 08:32 General appearance: Present: disheveled, A&O X 3, no acute distress - Head Additional comments: Left posterior neck and Left jaw with abscesses about the size of a quarter, firm masses Right parietal region with ~2cm abscess with visible pus Multple superficial lymphadenopathy - Eye Eye exam: Present: PERRL, conjuntiva pink, sclera anicteric Pupils: Present: PERRL - Neck Neck exam general surgery: Present: supple, trachea midline. Absent: lymphadenopathy - Respiratory Respiratory exam: Present: CTAB. Absent: accessory muscle use, rales, rhonchi, wheezes - Cardiovascular Cardiovascular exam: Present: RRR, +S1, +S2. Absent: diastolic murmur, gallop, rubs, systolic murmur - GI/Abdominal GI/Abdominal exam: Present: normal bowel sounds, soft, no peritoneal signs. Absent: distended, tenderness - Extremities Exam Extremities exam: Present: warm, radial pulses palpable and symmetrical. Absent : calf tenderness, cyanotic, pedal edema - Neurological Exam Neurological exam: Present: alert, CN II-XII intact, oriented X3, no focal deficits. Absent: pronater drift, facial droop, speech deficit - Skin Additional comments: Track teixeira Internal Medicine: Result - Labs CBC & Chem 7: 06/24/17 03:48 06/24/17 03:48 Labs: Short CBC 06/24/17 Range/Units 03:48 WBC 9.1 (4.3-11.1) K/mcL Hgb 12.3 L D (12.9-16.9) g/dL Hct 36.1 L (37.5-50.1) % Plt Count 276 (140-400) K/mcL Neutrophils # 5.8 (1.6-8.9) K/mcL BMP 06/24/17 03:48 Sodium 139 Potassium 3.8 Chloride 104 Carbon Dioxide 29 BUN 9 Creatinine 0.74 Glucose 109 H Calcium 8.4 L - ABG Interpretation ABG results: PT/INR, D-dimer PT 12.3 Seconds (9.4-12.1) H 06/23/17 19:05 Consult Discharge Plan - Plan Referrals: NONE,PCP [Primary Care Provider] -
[2017-06-24] MEDS: Vancomycin 1,250 MG in D5% in Water 250 ML IVPB SCH (13:46)
[2017-06-24] MEDS: *HR* Morphine 2 MG/ML SYRINGE IVP PRN ×2 (13:48→21:34)
[2017-06-24] MEDS: 0.9 % Sodium Chloride 1,000 ML IVC SCH (16:02)
[2017-06-24] MEDS: Silvasorb 44.4 ML TUBE TP SCH ×2 (16:02→23:27)
--- NOTE | 2017-06-24 17:07 | Electrocardiograph Report ---
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
--- NOTE | 2017-06-24 17:50 | General Surgery Consult Note ---
Date of Encounter: 06/24/17 Time of Encounter: 17:25 History of Present Illness Consult date: 06/24/17 Requesting physician: Adrianne Shen History of present illness: 32 yo referred for surgical evaluation and treatment after presenting to [facility] emergency department with multiple skin abscesses/ infection. Patient has an extensive history of IV drug abuse and describes these abscesses developing after "sharing a dirty needle". The is convinced he has been infected with the "flesh eating bacteria.". The patient has 3 prominent abscesses right parietal scalp, left mastoid and left tragal area. These will require surgical debridement. Debridement will be arranged in the a.m. under anesthesia. Past medical history: Asthma hepatitis and prolonged polysubstance abuse Surgical history: Patient denies any significant surgical history Allergies: Tramadol Medications: Olanzapine 10 mg by mouth daily at bedtime (prescribed 2016) Trazodone 50 mg by mouth daily at bedtime when necessary ( prescribed 03/09/17) Sulfamethoxazole/trimethoprim DS 1 by mouth twice a day ( prescribed 03/09/17 and again 04/15/17) IV antibiotics since admission include clindamycin and vancomycin. Social history: Patient admits to smoking 1-1/2 packs of cigarettes daily since the age of 8 (23 years); is also a history of significant alcohol abuse; patient indicates he quit consuming alcohol about 5 years ago; he continues to abuse opiates, marijuana, methamphetamines. The patient dictates his last drug use was approximately 2 weeks ago Physical examination: Age-appropriate male sitting comfortably in his hospital bed. He is 1.93 m tall, 85.7 kg, BMI 23.0 The patient has been afebrile since admission, currently 97.5, pulse 94, respirations 15, blood pressure fluctuating from 99/62- 108/67; SPO2 on room air 98% Multiple abscesses - right parietal scalp measuring approximately 1.2 cm; left mastoid measuring 3 cm in long diameter; and left cheek/tragus measuring approximately 2 cm in diameter. All are draining pus but in and straight considerable cutaneous collection which will require incision and drainage. No obvious regional adenopathy was detected Lungs were clear to auscultation Cardiac: Regular rate Abdomen: Soft nontender Laboratories: On presentation: white count 8.8, hemoglobin 14.8, hematocrit 42.8 ; platelet count 296,000. Differential within normal limits Repeat labs today: white count 9.1, hemoglobin 12.3, hematocrit 36.1; platelet count 276,000. Differential remaining within normal limits. Impression: 32-year-old male with extensive history of polysubstance abuse per to surgical services for evaluation and treatment of multiple abscesses involving the right parietal scalp, left mastoid, and left cheek/tragus. Incision and drainage under anesthesia with cultures and debridement will be arranged in the a.m. Risks including hemorrhage, consistent or recurrent infection; failure to heal. The wounds were left open following the incision and drainage. The patient expressed understanding and is willing to proceed. Consent has been obtained. Postop, I anticipate continued topical therapy as outlined by Mary Garcia/wound care. Past Med Surg Social Fam HX - Past Medical History Medical history: asthma, hepatitis, other Psychiatric history: other - Past Surgical History Surgical History: non-contributory - Social History Smoking Status: Current every day smoker Smokeless Tobacco Status: No Alcohol use: none Drug use: opiates, marijuana, methamphetamine, IV Drug Use - Family History Mother Living Status: Still Living Hx Family Cardiac Disorders: Yes Hx Family Endocrine Disorder: Yes (diabetes) Father Living Status: Hx Family Endocrine Disorder: Yes Medications and Allergies No Known Home Drugs 06/24/17 [History] 3 Allergy/AdvReac Type Severity Reaction Status Date / Time tramadol [From Ultram] Allergy Rash Verified 06/23/17 18:43 Review of Systems All systems PM: A 10-system review of systems was performed and is negative for pertinent findings except as documented above in the HPI. General Surgery Exam Initial Vital Signs Temp Pulse Resp BP Pulse Ox 100.0 F H 141 18 138/91 99 06/23/17 18:39 06/23/17 18:39 06/23/17 18:39 06/23/17 18:39 06/23/17 18:39 Exam Initial Vital Signs Temp Pulse Resp BP Pulse Ox 100.0 F H 141 18 138/91 99 06/23/17 18:39 06/23/17 18:39 06/23/17 18:39 06/23/17 18:39 06/23/17 18:39 Results - Labs 06/24/17 03:48 06/24/17 03:48 Abnormal lab results RBC 4.17 M/mcL (4.19-5.50) L 06/24/17 03:48 Hgb 12.3 g/dL (12.9-16.9) L D 06/24/17 03:48 Hct 36.1 % (37.5-50.1) L 06/24/17 03:48 MPV 8.5 fL (9.4-12.4) L 06/24/17 03:48 PT 12.3 Seconds (9.4-12.1) H 06/23/17 19:05 Glucose 109 mg/dL (70-99) H 06/24/17 03:48 POC Glucose 106 (58-89) H 06/24/17 08:06 Calcium 8.4 mg/dL (8.6-10.8) L 06/24/17 03:48 AST 117 Units/L (5-34) H 06/23/17 19:05 ALT 232 Units/L (0-55) H 06/23/17 19:05 Albumin 3.3 g/dL (3.5-5.0) L 06/23/17 19:05 Globulin 4.6 g/dL (2.4-3.5) H 06/23/17 19:05 Albumin/Globulin Ratio 0.7 (1.1-2.2) L 06/23/17 19:05 Ur Specific [place] 1.027 (1.010-1.025) H 06/23/17 19:42 Urine Protein 30 mg/dL (Neg-Trace) H 06/23/17 19:42 Urine Microscopic RBC 5-15 per hpf (0-3) H 06/23/17 19:42 Urine Microscopic WBC 5-15 per hpf (0-3) H 06/23/17 19:42 Ur Squamous Epith Cells Many per lpf (None-Few) H 06/23/17 19:42 Diabetes panel 06/24/17 Range/Units 03:48 Sodium 139 (136-145) mEq/L Potassium 3.8 (3.5-4.5) mEq/L Chloride 104 (98-109) mEq/L Carbon Dioxide 29 (19-29) mEq/L BUN 9 (8-26) mg/dL Creatinine 0.74 (0.72-1.25) mg/dL Glucose 109 H (70-99) mg/dL Calcium 8.4 L (8.6-10.8) mg/dL Calcium panel 06/24/17 Range/Units 03:48 Calcium 8.4 L (8.6-10.8) mg/dL Pituitary panel 06/24/17 Range/Units 03:48 Sodium 139 (136-145) mEq/L Potassium 3.8 (3.5-4.5) mEq/L Chloride 104 (98-109) mEq/L Carbon Dioxide 29 (19-29) mEq/L BUN 9 (8-26) mg/dL Creatinine 0.74 (0.72-1.25) mg/dL Glucose 109 H (70-99) mg/dL Calcium 8.4 L (8.6-10.8) mg/dL Adrenal panel 06/24/17 Range/Units 03:48 Sodium 139 (136-145) mEq/L Potassium 3.8 (3.5-4.5) mEq/L Chloride 104 (98-109) mEq/L Carbon Dioxide 29 (19-29) mEq/L BUN 9 (8-26) mg/dL Creatinine 0.74 (0.72-1.25) mg/dL Glucose 109 H (70-99) mg/dL Calcium 8.4 L (8.6-10.8) mg/dL All other labs normal. Consult Discharge Plan - Plan Referrals: NONE,PCP [Primary Care Provider] -
[2017-06-24] MEDS: traZODone 50 MG TABLET PO PRN (23:27)
[2017-06-25] MEDS: 0.9 % Sodium Chloride 1,000 ML IVC SCH ×2 (05:57→05:58)
[2017-06-25] MEDS: *HR* Morphine 2 MG/ML SYRINGE IVP PRN ×4 (05:59→23:12)
[2017-06-25] MEDS: Vancomycin 1,250 MG in D5% in Water 250 ML IVPB SCH ×2 (06:03→06:10)
[2017-06-25] MEDS: Clindamycin 600 MG/50 ML 600 MG/50 ML IV.SOLN IVPB SCH ×3 (06:04→18:54)
[2017-06-25 08:19] LABS: Basophils # 0.1 K/mcL (0.0-0.2); Basophils % 0.8 %; Eosinophils # 0.2 K/mcL (0.0-0.6); Eosinophils % 3.1 %; Hematocrit 37.4 % (37.5-50.1); Hemoglobin 12.8 g/dL (12.9-16.9); Immature Granulocytes % 0.4 % (0-4); Lymphocytes # 1.7 K/mcL (0.6-4.6); Lymphocytes % 21.7 %; Mean Corpuscular HGB Conc 34.2 g/dL (31.6-35.5); Mean Corpuscular Hemoglobin 29.8 pg (28.0-33.3); Mean Platelet Volume 8.7 fL (9.4-12.4); Monocytes # 0.7 K/mcL (0.0-1.3); Monocytes % 8.7 %; Platelet Count 302 K/mcL (140-400); Red Cell Distribution Width 12.4 % (11.5-14.5); Segmented Neutrophils % 65.3 %
[2017-06-25] MEDS ORDERED: Albuterol 2.5 MG/3 ML NEBULIZER ONE (08:20)
[2017-06-25 08:26] LABS: BUN/Creatinine Ratio 10 (6-26); Blood Urea Nitrogen 7 mg/dL (8-26); Calcium 8.8 mg/dL (8.6-10.8); Carbon Dioxide 26 mEq/L (19-29); Chloride 105 mEq/L (98-109); Glucose 111 mg/dL (70-99); Osmolality,Calculated 283 (280-300); Potassium 4.1 mEq/L (3.5-4.5); Sodium 137 mEq/L (136-145); eGFR For African Americans > 60 (> 60); eGFR For Non-African Americans > 60 (> 60)
--- NOTE | 2017-06-25 08:28 | Anesthesia Evaluation PreOp ---
Date of Encounter: 06/25/17 Time of Encounter: 08:26 - Past History Planned Operation: IandD scalp and neck abcess Cardiac History: Denies any Significant Hx Pulmonary History: Smoker HEALTH ASSOCIATE History: Denies Any Significant HX Other Medical History: Other (IVDA) Anesthesia History: Past Anesthesia (none, no known family hx anesthesia complications) Alcohol Use: none Drug use: opiates, marijuana, methamphetamine, IV Drug Use Medications and Allergies No Known Home Drugs 06/24/17 [History] 3 Allergy/AdvReac Type Severity Reaction Status Date / Time tramadol [From Ultram] Allergy Rash Verified 06/23/17 18:43 - Meds/Allergy Pre-op Review Medications Reviewed: Yes Allergies Reviewed: Yes Beta Blockers on Current Med List: No Anesthesia Results - Labs 06/25/17 07:47 06/24/17 03:48 - Imaging EKG: other (sinus tachycardia) Anesthesia Exam O2 Sat Weight 84.4 kg O2 Sat by Pulse Oximetry 97 O2 Sat by Pulse Oximetry 95 O2 Sat by Pulse Oximetry 98 O2 Sat by Pulse Oximetry 98 O2 Sat by Pulse Oximetry 100 Vital Signs Temp Pulse Resp BP Pulse Ox 100.0 F H 141 18 138/91 99 06/23/17 18:39 06/23/17 18:39 06/23/17 18:39 06/23/17 18:39 06/23/17 18:39 Height: 1.93m Weight: 84kg NPO (# of Hours): >8 - HEENT Pupil (Motor): Pupils equal, EOMI Mallampati: II Teeth: Poor dentition Oral Opening: Greater than 3 - HEALTH ASSOCIATE LOC: Oriented HEALTH ASSOCIATE Motor: Normal RUE, Normal LUE, Normal RLE, Normal LLE, Normal Face HEALTH ASSOCIATE Sensory: Normal: RUE, LUE, RLE, LLE, Face - Cardiac Rhythm: Regular - Pulmonary Breath Sounds: bilateral Clear Respiratory Effort: Symmetrical Anesthesia Assess/Plan ASA Score: 2 Modified Gustavo Scale for Level of Consciousness: Cooperative, oriented, and tranquil Anesthetic Plan: General (r/b/a discussed, questions answered, consent obtained) Monitoring Plan: Standard Monitors Recovery Plan: PACU
[2017-06-25] MEDS ORDERED: Lidocaine -MPF 2% 2 ML VIAL ONE (09:02)
[2017-06-25] MEDS ORDERED: *HR* Midazolam HCl 2 MG/2 ML VIAL ONE (09:02)
[2017-06-25] MEDS ORDERED: *HR* Propofol 200 MG/20 ML VIAL IVP ONE ×2 (09:02→09:22)
[2017-06-25] MEDS ORDERED: Ketorolac 30 MG/ML VIAL ONE (09:02)
[2017-06-25] MEDS ORDERED: Ondansetron 4 MG/2 ML VIAL ONE (09:02)
[2017-06-25] MEDS ORDERED: *HR* FentaNYL (PF) 100 MCG/2 ML VIAL ONE ×2 (09:02→09:18)
[2017-06-25] MEDS ORDERED: Lacri-Lube 3.5 GM TUBE ONE (09:23)
[2017-06-25] MEDS ORDERED: *HR* Labetalol 20 MG/4 ML SYRINGE IVP PRN (09:25)
[2017-06-25] MEDS ORDERED: *HR* Promethazine 25 MG/ML VIAL IVP PRN (09:25)
--- NOTE | 2017-06-25 10:18 | Operative Note ---
Date of procedure: 06/25/17 Pre-op diagnosis: multiple abscesses right parietal scalp, left mastoid and left tragus Post-op diagnosis: same Procedure: incision, drainage, debridement mulitple abscesses right parietal, left mastoid and left tragal areas Complications: none apparent Anesthesia: other (laryngomask airway) Surgeon: Emre Yeung Estimated blood loss (cc): 20 IV fluids (cc): 1,000 Specimen: aerobic and anaerobic cultures Condition: stable Disposition: PACU Procedure in Detail: The patient was brought to the operating room where he was placed supine upon the operating room table. The patient was appropriately identified as to person and procedure. The accuracy of this information is confirmed by the procedure team. The surgical consent, which had been signed preoperatively, was reviewed and confirmed. The patient was then anesthetized under the supervision of Dr. Portia Farias. The 3 abscesses right parietal, left mastoid , and left tragal area were prepped and draped in usual sterile fashion. The right parietal lesion measured approximately 2 cm in diameter. It was incised and debrided of necrotic tissue. This lesion may be an epidermal inclusion cyst. The wound was irrigated with several milliliters of sterile saline using a also dilated irrigation system. An absorbent gauze dressing applied. The head was turned to facilitate exposure to the left mastoid and left tragus area. The left mastoid measured approximately 2 cm in greatest diameter. The skin was incised, ulcerated, necrotic tissue debrided and the wound irrigated. The left tragus lesion measured approximately 3 cm in greatest diameter. Necrotic tissue was debrided and the wound irrigated. The 3 wounds were filled with quarter inch iodoform gauze. Maxorb AG laced over top of the iodoform gauze followed by folded 4 x 4 gauze. A head dressing of Arnaud to hold all dressings in place was applied. The patient was taken to recovery in stable condition. Needle, sponge, and instrument counts were correct at the close of the case.
[2017-06-25] MEDS: *HR* HYDROmorphone (PF) 1 MG/ML SYRINGE IVP PRN ×3 (10:20→10:44)
--- NOTE | 2017-06-25 11:00 | Anesthesia Evaluation Post Op ---
Date of Encounter: 06/25/17 Time of Encounter: 11:00 - Vital Signs Vital Signs: vss - Lungs Lungs: Clear Ascult./Percussion - Airway Airway: Non-obstructed - Cardiovascular Regular Rate - Pain Pain Scale: 4 Pain Scale used: Numeric (1 - 10) (Medicated total 3 mg dilaudid) - Nausea Vomiting Nausea Vomiting: Not Present - Hydration Hydration: Ice chips - Discharge PostOp Status: Transfer Patient to floor
[2017-06-25] MEDS ORDERED: Ondansetron 4 MG/2 ML VIAL IVP PRN (11:40)
[2017-06-25] MEDS ORDERED: Naloxone 0.4 MG/ML INJ IVP PRN (11:40)
[2017-06-25] MEDS ORDERED: Ibuprofen 400 MG TABLET PO PRN (11:40)
[2017-06-25] MEDS ORDERED: 0.9 % Sodium Chloride 1,000 ML IVC SCH (11:40)
--- NOTE | 2017-06-25 13:03 | Internal Med Progress Note ---
Date of Encounter: 06/25/17 Time of Encounter: 13:01 - Assessment and plan (1) Sepsis Current Visit: Yes Status: Acute Assessment and plan: Patient presented with fever 100.6, Tachycardia up to 126, no leukocytosis, patient has multiple abscesses and cellulitis on his head and neck s/p I and D today Continue Clindamycin-Day 3 Continue Vancomycin- Day 2 Follow blood and wound cultures Blood cultures 06/23 with GPR Blood culture 06/25 repeated Wound nurse to eval Add vancomycin, pharmacy to dose pain control and IVF hydration Qualifiers: Sepsis type: sepsis due to unspecified organism Qualified Code(s): A41.9 - Sepsis, unspecified organism (2) Hepatitis C Current Visit: Yes Status: Chronic Assessment and plan: Transaminitis, monitor LFTs Follow up with PCP upon discharge Patient continues to use IV drugs Qualifiers: Viral hepatitis chronicity: chronic Hepatic coma status: without hepatic coma Qualified Code(s): B18.2 - Chronic viral hepatitis C (3) Methamphetamine abuse Current Visit: Yes Status: Chronic Assessment and plan: Encourage cessation (4) Transaminitis Current Visit: Yes Status: Acute Assessment and plan: Monitor LFT (5) Cellulitis Current Visit: Yes Status: Acute Assessment and plan: With abscess Surgery was consulted, s/p Incision and drainage by surgery 06/25/17. Continue clindamycin-day 3 Continue Vancomycin-Day 2 Follow wound culture Blood culture with GPR in one bottle repeated today 06/25 Qualifiers: Site of cellulitis: head Qualified Code(s): L03.811 - Cellulitis of head [ any part, except face] (6) Abscess of skin or subcutaneous tissue Current Visit: Yes Status: Acute Assessment and plan: As above Qualifiers: Site of cutaneous abscess: face Qualified Code(s): L02.01 - Cutaneous abscess of face (7) Gram-positive bacteremia Current Visit: Yes Status: Acute Assessment and plan: Gram positive rods Repeat blood culture ordered for today 06/25 - Subjective Interval history: Seen and evaluated at bedside Known Hep C and meth/opiates/THC abuse, IVDA Admitted for sepsis secondary to multiple facial cellulitis with abscesses s/p I and D today - Constitutional Vitals: Temp Pulse Resp BP Pulse Ox 97.9 F 90 18 104/69 99 06/25/17 11:20 06/25/17 11:20 06/25/17 11:20 06/25/17 11:20 06/25/17 11:20 General appearance: Present: disheveled, A&O X 3, no acute distress - Head Additional comments: Wrapped in multiple dressings, - Eye Eye exam: Present: PERRL, conjuntiva pink, sclera anicteric Pupils: Present: PERRL - Neck Neck exam general surgery: Present: supple, trachea midline. Absent: lymphadenopathy - Respiratory Respiratory exam: Present: CTAB. Absent: accessory muscle use, rales, rhonchi, wheezes - Cardiovascular Cardiovascular exam: Present: RRR, +S1, +S2. Absent: diastolic murmur, gallop, rubs, systolic murmur - GI/Abdominal GI/Abdominal exam: Present: normal bowel sounds, soft, no peritoneal signs. Absent: distended, tenderness - Extremities Exam Extremities exam: Present: warm, radial pulses palpable and symmetrical. Absent : calf tenderness, cyanotic, pedal edema - Neurological Exam Neurological exam: Present: alert, CN II-XII intact, oriented X3, no focal deficits. Absent: pronater drift, facial droop, speech deficit - Skin Additional comments: Generalized multiple healed skin lesions. Track teixeira. Internal Medicine: Result - Labs CBC & Chem 7: 06/25/17 07:47 06/25/17 07:47 Labs: Short CBC 06/25/17 Range/Units 07:47 WBC 7.7 (4.3-11.1) K/mcL Hgb 12.8 L (12.9-16.9) g/dL Hct 37.4 L (37.5-50.1) % Plt Count 302 (140-400) K/mcL Neutrophils # 5.0 (1.6-8.9) K/mcL BMP 06/25/17 07:47 Sodium 137 Potassium 4.1 Chloride 105 Carbon Dioxide 26 BUN 7 L Creatinine 0.73 Glucose 111 H Calcium 8.8 - ABG Interpretation ABG results: PT/INR, D-dimer PT 12.3 Seconds (9.4-12.1) H 06/23/17 19:05 Consult Discharge Plan - Plan Referrals: NONE,PCP [Primary Care Provider] -
[2017-06-25] MEDS ORDERED: Vancomycin 1,250 MG in D5% in Water 250 ML IVPB SCH (14:00)
[2017-06-25] MEDS ORDERED: traZODone 50 MG TABLET PO PRN (21:00)
[2017-06-26] MEDS: Silvasorb 44.4 ML TUBE TP SCH ×3 (01:28→20:24)
[2017-06-26] MEDS: Vancomycin 1,250 MG in D5% in Water 250 ML IVPB SCH ×2 (01:43→14:51)
[2017-06-26 03:34] LABS: Basophils # 0.1 K/mcL (0.0-0.2); Basophils % 0.9 %; Eosinophils # 0.3 K/mcL (0.0-0.6); Eosinophils % 3.8 %; Hematocrit 34.9 % (37.5-50.1); Hemoglobin 11.9 g/dL (12.9-16.9); Immature Granulocytes % 0.4 % (0-4); Immature Platelets 0.4 % (1.1-6.1); Lymphocytes # 2.3 K/mcL (0.6-4.6); Lymphocytes % 32.7 %; Mean Corpuscular HGB Conc 34.1 g/dL (31.6-35.5); Mean Corpuscular Hemoglobin 29.8 pg (28.0-33.3); Mean Corpuscular Volume 87.3 fL (83.0-100.0); Mean Platelet Volume 8.3 fL (9.4-12.4); Monocytes # 0.7 K/mcL (0.0-1.3); Monocytes % 9.8 %; Neutrophils # 3.7 K/mcL (1.6-8.9); Platelet Count 299 K/mcL (140-400); Red Cell Distribution Width 12.1 % (11.5-14.5); Segmented Neutrophils % 52.4 %
[2017-06-26 03:45] LABS: BUN/Creatinine Ratio 12 (6-26); Blood Urea Nitrogen 8 mg/dL (8-26); Calcium 8.6 mg/dL (8.6-10.8); Carbon Dioxide 28 mEq/L (19-29); Chloride 108 mEq/L (98-109); Glucose 107 mg/dL (70-99); Osmolality,Calculated 291 (280-300); Potassium 4.2 mEq/L (3.5-4.5); Sodium 141 mEq/L (136-145); eGFR For African Americans > 60 (> 60); eGFR For Non-African Americans > 60 (> 60)
[2017-06-26] MEDS: Clindamycin 600 MG/50 ML 600 MG/50 ML IV.SOLN IVPB SCH ×3 (04:01→20:12)
[2017-06-26] MEDS: *HR* Morphine 2 MG/ML SYRINGE IVP PRN ×3 (09:22→20:12)
--- NOTE | 2017-06-26 09:52 | General Surgery Progress Note ---
Date of Encounter: 06/26/17 Time of Encounter: 09:44 Subjective Narrative: General Surgery - patient c/o pain. Also describes becoming uncomfortable last evening with possible fever and "racing heart" Maximum temperature through the night 99.3; transient tachycardia to 110 recorded but currently heart rate 78, RR 18, BP 126/78 Patient appears well and in no acute distress this morning Operative dressing removed. Maxorb AG and perform packing intact. Wounds appear clean and dry. Laboratories: White count 7.7, hemoglobin 11.9, hematocrit 34.9. Differential remains within normal limits Electrolytes, BUN, creatinine are stable and within normal limits Operative cultures pending; preoperative cultures drawn on 06/23 and 06/25/17 - show a single peripheral venous culture positive for gram-positive malathi; the others demonstrate no growth Impression: Multiple cutaneous abscesses - postoperative day #1, status post incision, drainage, and debridement right parietal abscess, left mastoid abscess and left tragal abscess. Wounds appear to have responded well to treatment. Operative cultures pending. Recommendations: Maintain wounds open to air; I have removed the outer dressings Continue IV antibiotics pending wound culture results Wound packing to be removed tomorrow Wound irrigations with half-strength hydrogen peroxide and local wound care per orders from wound care dated 06/24/17 Patient may shower and wash all areas with soap and water Objective Vital Signs - Last 8 Hours Temp Pulse Resp BP Pulse Ox 06/26/17 09:00 98.0 F 78 18 126/78 06/26/17 04:56 97.9 F 86 16 101/57 96 Intake and Output 06/25/17 06/26/17 06/26/17 23:59 07:59 15:59 Intake Total 150 / 150 290 / 290 240 / 240 Output Total 0 / 0 0 / 0 Balance 150 / 150 290 / 290 240 / 240 Intake: IV Fluids 0 / 0 50 / 50 Cleocin Premix 600 MG/50 ML 600 0 / 0 50 / 50 mg In 50 ml @ 50 mls/hr IVPB Q8H ALESSIO Rx#:[id number] Oral 150 / 150 240 / 240 240 / 240 Output: Urine 0 / 0 0 / 0 Other: Meal Breakfast Percent of Meal Consumed 100% # Voids 4 3 Weight 84 kg Patient Weight 06/26/17 23:59 Weight 84 kg - Labs 06/26/17 03:18 06/26/17 03:18 Diabetes panel 06/26/17 Range/Units 03:18 Sodium 141 (136-145) mEq/L Potassium 4.2 (3.5-4.5) mEq/L Chloride 108 (98-109) mEq/L Carbon Dioxide 28 (19-29) mEq/L BUN 8 (8-26) mg/dL Creatinine 0.67 L (0.72-1.25) mg/dL Glucose 107 H (70-99) mg/dL Calcium 8.6 (8.6-10.8) mg/dL Calcium panel 06/26/17 Range/Units 03:18 Calcium 8.6 (8.6-10.8) mg/dL Pituitary panel 06/26/17 Range/Units 03:18 Sodium 141 (136-145) mEq/L Potassium 4.2 (3.5-4.5) mEq/L Chloride 108 (98-109) mEq/L Carbon Dioxide 28 (19-29) mEq/L BUN 8 (8-26) mg/dL Creatinine 0.67 L (0.72-1.25) mg/dL Glucose 107 H (70-99) mg/dL Calcium 8.6 (8.6-10.8) mg/dL Adrenal panel 06/26/17 Range/Units 03:18 Sodium 141 (136-145) mEq/L Potassium 4.2 (3.5-4.5) mEq/L Chloride 108 (98-109) mEq/L Carbon Dioxide 28 (19-29) mEq/L BUN 8 (8-26) mg/dL Creatinine 0.67 L (0.72-1.25) mg/dL Glucose 107 H (70-99) mg/dL Calcium 8.6 (8.6-10.8) mg/dL - VTE Documentation of Mechanical Device: Intermittent pneumatic compression device Consult Discharge Plan - Plan Referrals: NONE,PCP [Primary Care Provider] -
--- NOTE | 2017-06-26 10:44 | Internal Med Progress Note ---
Date of Encounter: 06/26/17 Time of Encounter: 10:44 - Assessment and plan (1) Sepsis Current Visit: Yes Status: Acute Assessment and plan: Patient presented with fever 100.6, Tachycardia up to 126, no leukocytosis, patient has multiple abscesses and cellulitis on his head and neck s/p I and D POD 1 Continue Clindamycin-Day 4 Continue Vancomycin- Day 3 Follow blood and wound cultures Blood cultures 06/23 with GPR in one bottle Blood culture 06/25 repeated, prelim, no growth Continue current care Await final cultures Qualifiers: Sepsis type: sepsis due to unspecified organism Qualified Code(s): A41.9 - Sepsis, unspecified organism (2) Hepatitis C Current Visit: Yes Status: Chronic Assessment and plan: Transaminitis, monitor LFTs Follow up with PCP upon discharge Patient continues to use IV drugs Qualifiers: Viral hepatitis chronicity: chronic Hepatic coma status: without hepatic coma Qualified Code(s): B18.2 - Chronic viral hepatitis C (3) Methamphetamine abuse Current Visit: Yes Status: Chronic Assessment and plan: Encourage cessation (4) Transaminitis Current Visit: Yes Status: Acute Assessment and plan: Monitor LFT (5) Cellulitis Current Visit: Yes Status: Acute Assessment and plan: With abscess Surgery was consulted, s/p Incision and drainage by surgery 06/25/17. Continue clindamycin-day 4 Continue Vancomycin-Day 3 Follow wound culture Blood culture with GPR in one bottle repeated today 06/25, prelim, no growth Qualifiers: Site of cellulitis: head Qualified Code(s): L03.811 - Cellulitis of head [ any part, except face] (6) Abscess of skin or subcutaneous tissue Current Visit: Yes Status: Acute Assessment and plan: As above Qualifiers: Site of cutaneous abscess: face Qualified Code(s): L02.01 - Cutaneous abscess of face (7) Gram-positive bacteremia Current Visit: Yes Status: Acute Assessment and plan: Gram positive rods in one bottle of 06/23 Repeated 06/25, prelim, no growth Await final cultures - Subjective Interval history: Seen and evaluated at bedside Known Hep C and meth/opiates/THC abuse, IVDA Admitted for sepsis secondary to multiple facial cellulitis with abscesses s/p I and D POD 1 No new complains - Constitutional Vitals: Temp Pulse Resp BP Pulse Ox 98.0 F 78 18 126/78 96 06/26/17 09:00 06/26/17 09:00 06/26/17 09:00 06/26/17 09:00 06/26/17 04:56 General appearance: Present: disheveled, A&O X 3, no acute distress - Head Head exam: Present: atraumatic, normocephalic Additional comments: Wound dressing on Let jaw, Lt occipital and Rt parietal regions soaked with dried blood, swelling is much more decreased - Eye Eye exam: Present: PERRL, conjuntiva pink, sclera anicteric Pupils: Present: PERRL - Neck Neck exam general surgery: Present: supple, trachea midline. Absent: lymphadenopathy - Respiratory Respiratory exam: Present: CTAB. Absent: accessory muscle use, rales, rhonchi, wheezes - Cardiovascular Cardiovascular exam: Present: RRR, +S1, +S2. Absent: diastolic murmur, gallop, rubs, systolic murmur - GI/Abdominal GI/Abdominal exam: Present: normal bowel sounds, soft, no peritoneal signs. Absent: distended, tenderness - Extremities Exam Extremities exam: Present: warm, radial pulses palpable and symmetrical. Absent : calf tenderness, cyanotic, pedal edema - Neurological Exam Neurological exam: Present: alert, CN II-XII intact, oriented X3, no focal deficits. Absent: pronater drift, facial droop, speech deficit - Skin Skin exam: Present: dry, intact Additional comments: Track [email or web address] Internal Medicine: Result - Labs CBC & Chem 7: 06/26/17 03:18 06/26/17 03:18 Labs: Short CBC 06/26/17 Range/Units 03:18 WBC 7.0 (4.3-11.1) K/mcL Hgb 11.9 L (12.9-16.9) g/dL Hct 34.9 L (37.5-50.1) % Plt Count 299 (140-400) K/mcL Neutrophils # 3.7 (1.6-8.9) K/mcL BMP 06/26/17 03:18 Sodium 141 Potassium 4.2 Chloride 108 Carbon Dioxide 28 BUN 8 Creatinine 0.67 L Glucose 107 H Calcium 8.6 - ABG Interpretation ABG results: PT/INR, D-dimer PT 12.3 Seconds (9.4-12.1) H 06/23/17 19:05 - VTE Documentation of Mechanical Device: Intermittent pneumatic compression device Consult Discharge Plan - Plan Referrals: NONE,PCP [Primary Care Provider] -
[2017-06-26] MEDS ORDERED: Aminoglycoside Consult 1 EACH MC ONE (17:00)
[2017-06-27] MEDS: Vancomycin 1,250 MG in D5% in Water 250 ML IVPB SCH (01:29)
[2017-06-27] MEDS: Clindamycin 600 MG/50 ML 600 MG/50 ML IV.SOLN IVPB SCH ×2 (03:30→11:38)
[2017-06-27] MEDS: *HR* Morphine 2 MG/ML SYRINGE IVP PRN ×2 (03:30→12:05)
[2017-06-27 06:57] LABS: Basophils # 0.1 K/mcL (0.0-0.2); Basophils % 1.2 %; Eosinophils # 0.3 K/mcL (0.0-0.6); Eosinophils % 3.4 %; Hematocrit 39.1 % (37.5-50.1); Hemoglobin 13.1 g/dL (12.9-16.9); Immature Granulocytes % 0.7 % (0-4); Lymphocytes # 2.3 K/mcL (0.6-4.6); Lymphocytes % 30.8 %; Mean Corpuscular HGB Conc 33.5 g/dL (31.6-35.5); Mean Corpuscular Hemoglobin 29.2 pg (28.0-33.3); Mean Corpuscular Volume 87.1 fL (83.0-100.0); Mean Platelet Volume 8.7 fL (9.4-12.4); Monocytes # 0.7 K/mcL (0.0-1.3); Monocytes % 9.9 %; Platelet Count 329 K/mcL (140-400); Red Blood Count 4.49 M/mcL (4.19-5.50); Red Cell Distribution Width 12.3 % (11.5-14.5)
[2017-06-27 07:04] LABS: BUN/Creatinine Ratio 18 (6-26); Blood Urea Nitrogen 14 mg/dL (8-26); Carbon Dioxide 27 mEq/L (19-29); Chloride 106 mEq/L (98-109); Glucose 91 mg/dL (70-99); Osmolality,Calculated 288 (280-300); Potassium 4.2 mEq/L (3.5-4.5); Sodium 139 mEq/L (136-145); eGFR For African Americans > 60 (> 60); eGFR For Non-African Americans > 60 (> 60)
--- NOTE | 2017-06-27 10:31 | Discharge Summary ---
Date of Encounter: 06/27/17 Time of Encounter: 10:29 - Discharge Diagnosis (1) Sepsis Priority: Primary Status: Resolved Qualifiers: Sepsis type: sepsis due to unspecified organism Qualified Code(s): A41.9 - Sepsis, unspecified organism (2) Hepatitis C Priority: Secondary Status: Chronic Qualifiers: Viral hepatitis chronicity: chronic Hepatic coma status: without hepatic coma Qualified Code(s): B18.2 - Chronic viral hepatitis C (3) Methamphetamine abuse Priority: Secondary Status: Chronic (4) Transaminitis Priority: Primary Status: Acute (5) Cellulitis Priority: Primary Status: Acute Qualifiers: Site of cellulitis: head Qualified Code(s): L03.811 - Cellulitis of head [ any part, except face] (6) Abscess of skin or subcutaneous tissue Priority: Primary Status: Acute Qualifiers: Site of cutaneous abscess: face Qualified Code(s): L02.01 - Cutaneous abscess of face (7) Gram-positive bacteremia Priority: Primary Status: Resolved - Discharge Medications Prescriptions: Ibuprofen 400 mg PO Q6HR #12 tablet OxyCODONE/APAP 5/325 [Percocet 5/325 MG] 1 each PO Q8HR PRN #6 tablet PRN Reason: Pain Doxycycline 100 mg PO BID #14 capsule Home Medications: Doxycycline 100 mg PO BID #14 capsule 06/27/17 [Rx] Ibuprofen 400 mg PO Q6HR #12 tablet 06/27/17 [Rx] OxyCODONE/APAP 5/325 [Percocet 5/325 MG] 1 each PO Q8HR PRN #6 tablet 06/27/17 [ Rx] Allergies/Adverse Reactions: 3 Allergy/AdvReac Type Severity Reaction Status Date / Time tramadol [From Ultram] Allergy Rash Verified 06/23/17 18:43 Date of admission: 06/23/17 22:21 Primary care physician: PCP NONE Consults: 06/24/17 10:45 Consult to Wound Care [CONS] Routine Reason for Consult: multiple facial abrasions / excoriation with infection Time Notified: 10:45 Call Completed: Yes Discharging clinician: Mike Galarza Anticipated date of discharge: 06/27/17 - Patient Status Disposition: Home, Self-Care Condition: Good Functional capacity at discharge: independent ambulation Overall status at discharge: patient is back to baseline - Discharge Instructions Follow Up With: Milton Peters DO [Resident] - 07/29/17 10:30 am - Diet and Activity Activity: resume usual activities as tolerated Diet: regular diet Interval History: See below Hospital course: Mr. Swanson is a 32 year old male with medical history of polysubstance abuse including methamphetamines, hearing, Karis 1. He is admitted and managed for sepsis secondary to multiple skin abscesses from picking on his own skin. Patient presented with fever 100.6, Tachycardia up to 126, no leukocytosis, patient has multiple abscesses and cellulitis on his head and neck s/p I and D POD 2 Continue Clindamycin-Day 5 Continue Vancomycin- Day 3 Follow blood and wound cultures Blood cultures 06/23 with GPR in one bottle Blood culture 06/25 repeated, prelim, no growth Wound culture with community aquired MRSA Stable for discharge home care after change of wound dressing on po doxycycline Patient refused held with wound care, states his sister is a RN and can help him with wound care Patient does not have a PCP, encouraged to follow up with one tobacco cessation counselling done, encouraged cessation of multiple illicit drugs Time spent discussing smoking cessation with patient: 3 to 10 minutes - Time Spent with Patient Total time spent providing and/or coordinating discharge services: Greater than 30 minutes - Constitutional Vitals: Temp Pulse Resp BP Pulse Ox 97.5 F L 90 18 96/56 96 06/27/17 05:57 06/27/17 05:57 06/27/17 05:57 06/27/17 05:57 06/27/17 05:57 General appearance: Present: A&O X 3, pleasant, no acute distress - Head Head exam: Present: atraumatic, normocephalic Additional comments: Wound dressing on Let jaw, Lt occipital and Rt parietal regions soaked with dried blood, swelling is much more decreased - Eye Eye exam: Present: PERRL, conjuntiva pink, sclera anicteric Pupils: Present: PERRL - Neck Neck exam general surgery: Present: supple, trachea midline. Absent: lymphadenopathy - Respiratory Respiratory exam: Present: CTAB. Absent: accessory muscle use, rales, rhonchi, wheezes - Cardiovascular Cardiovascular exam: Present: RRR, +S1, +S2. Absent: diastolic murmur, gallop, rubs, systolic murmur - GI/Abdominal GI/Abdominal exam: Present: normal bowel sounds, soft, no peritoneal signs. Absent: distended, tenderness - Extremities Exam Extremities exam: Present: warm, radial pulses palpable and symmetrical. Absent : calf tenderness, cyanotic, pedal edema - Neurological Exam Neurological exam: Present: alert, CN II-XII intact, oriented X3, no focal deficits. Absent: pronater drift, facial droop, speech deficit - Skin Skin exam: Present: dry Additional comments: Multiple healed hypopigmented lesions from prior skin abscessed - VTE Documentation of Mechanical Device: Intermittent pneumatic compression device
[2017-06-27 11:51] VITALS: BP 107/70
== END 2017-06-27 17:01 | disposition home or self-care (01) | DRG 720 ==
LOC: 2NENU 18:25 → EMEROO 18:25 → 2NENU 21:50 → SUATTDRO 22:21
PROVIDERS: ADMIT Internal Medicine Hematology & Oncology; ATTEND Internal Medicine